=== PATIENT | male | born 1955 | race Caucasian/White ===

== ENCOUNTER 2022-08-16 04:09 | Inpatient (IN) | payer MEDICARE ==
[2022-08-16] MEDS ORDERED: ONDANSETRON 4 MG/2 ML VIAL ONE (04:43)
[2022-08-16] MEDS ORDERED: FUROSEMIDE 40 MG/4 ML VIAL ONE ×3 (04:43→17:23)
[2022-08-16] MEDS ORDERED: ASPIRIN 81 MG CHEWABLE TABLET ONE (04:43)
[2022-08-16 04:59] LABS: Absolute Lymphocytes (CBC) 0.5 K/uL (0.7-4.9); Hematocrit 41.2 % (39.6-49.0); Lymphocytes % 4.6 % (15.3-44.8); MPV 8.7 fL (7.6-11.3); RBC Red Blood Cell Count 4.96 M/uL (4.33-5.43)
[2022-08-16 05:16] LABS: Albumin 3.8 g/dL (3.4-5.0); Bilirubin Direct 0.2 mg/dL (0-0.2); Bilirubin Total 0.4 mg/dL (0.2-1.0); Magnesium 2.1 mg/dL (1.6-2.4); Potassium 4.4 mmol/L (3.5-5.1); Protein, Total 7.5 g/dL (6.4-8.2); Troponin High Sensitivity 54.2 pg/mL (<58.9)
--- NOTE | 2022-08-16 07:02 | EDPHYS ---
Physician Documentation [facility] Name: Darryl Madrigal Age: 66 yrs Sex: Male : 1955 Arrival Date: 08/16/2022 Time: 04:11 Bed 18 Private MD: ED Physician Rickey Martin HPI: 08/16 05:04 This 66 yrs old Male presents to ER via Ambulatory with complaints of Shortness Of rt Breath, Chest Pain. 05:04 The patient has shortness of breath at rest. Onset: The symptoms/episode began/occurred rt 2 hour(s) ago. Duration: The symptoms are continuous. The patient's shortness of breath has no apparent modifying factors. Associated signs and symptoms: Pertinent positives: chest pain, nausea. Severity of symptoms: At their worst the symptoms were moderate. Patient with history of congestive heart failure, coronary artery disease presents to the ED with an acute onset of dyspnea and chest pain that woke him up from sleep. The patient states that he believes that he is retaining fluid. The patient states that the dyspnea is improved and the chest pain has resolved, however, he has persistent nausea. Denies other acute complaints at this time, symptoms are moderate severity, no other aggravating or alleviating factors.. Historical: - Allergies: 04:25 RICHARD INHIBITORS; bb - Immunization history:: Client reports receiving the 2nd dose of the Covid vaccine, Moderna. - Social history:: Smoking status: Patient denies any tobacco usage or history of. - Family history:: not pertinent. ROS: 05:04 Constitutional: Negative for fever, chills, and weight loss, Eyes: Negative for injury, rt pain, redness, and discharge, ENT: Negative for injury, pain, and discharge, Neck: Negative for injury, pain, and swelling, Back: Negative for injury and pain, MS/Extremity: Negative for injury and deformity, Skin: Negative for injury, rash, and discoloration, Neuro: Negative for headache, weakness, numbness, tingling, and seizure, Psych: Negative for depression, anxiety, suicide ideation, homicidal ideation, and hallucinations. 05:04 Cardiovascular: Positive for chest pain, edema. 05:04 Respiratory: Positive for cough, dyspnea on exertion, orthopnea. 05:04 Abdomen/GI: Positive for nausea, Negative for abdominal pain. Exam: 05:04 Constitutional: This is a well developed, well nourished patient who is awake, alert, rt and in no acute distress. Head/Face: Normocephalic, atraumatic. Eyes: Pupils equal round and reactive to light, extra-ocular motions intact. Lids and lashes normal. Conjunctiva and sclera are non-icteric and not injected. Cornea within normal limits. Periorbital areas with no swelling, redness, or edema. ENT: Nares patent. No nasal discharge, no septal abnormalities noted. Tympanic membranes are normal and external auditory canals are clear. Oropharynx with no redness, swelling, or masses, exudates, or evidence of obstruction, uvula midline. Mucous membranes moist. Chest/axilla: Normal chest wall appearance and motion. Nontender with no deformity. No lesions are appreciated. Cardiovascular: Regular rate and rhythm with a normal S1 and S2. No gallops, murmurs, or rubs. Normal PMI, no JVD. No pulse deficits. Skin: Warm, dry with normal turgor. Normal color with no rashes, no lesions, and no evidence of cellulitis. MS/ Extremity: Pulses equal, no cyanosis. Neurovascular intact. Full, normal range of motion. Neuro: Awake and alert, GCS 15, oriented to person, place, time, and situation. Cranial nerves II-XII grossly intact. Motor strength 5/5 in all extremities. Sensory grossly intact. Cerebellar exam normal. Normal gait. Psych: Awake, alert, with orientation to person, place and time. Behavior, mood, and affect are within normal limits. 05:04 Respiratory: Basilar crackles, mild respiratory distress. 05:04 Musculoskeletal/extremity: 3+ pitting bilateral lower extremity edema with chronic skin changes. 05:10 ECG was reviewed by the Attending Physician. rt Vital Signs: 04:23 BP 139 / 64; Pulse 92; Resp 32 S; Temp 98.7(O); Pulse Ox 98% on R/A; Weight 122.47 kg bb (R); Height 5 ft. 9 in. (175.26 cm) (R); Pain 0/10; 04:56 BP 133 / 61; Pulse 84; Resp 26; Pulse Ox 97% on R/A; Pain 0/10; pf1 06:00 BP 126 / 67; Pulse 71; Resp 25; Pulse Ox 95% on R/A; Pain 0/10; pf1 06:15 BP 130 / 51; Pulse 72; Resp 25; Pulse Ox 94% on R/A; Pain 0/10; pf1 04:23 Body Mass Index 39.87 (122.47 kg, 175.26 cm) bb MDM: 04:20 Patient medically screened. rt 07:02 Differential diagnosis: Anemia Chronic Obstructive Pulmonary Disease Myocardial rt Infarction pneumonia, Pneumothorax pulmonary edema. Data reviewed: vital signs, nurses notes. 08/16 04:33 Order name: Basic Metabolic Panel; Complete Time: 05:26 rt 08/16 04:33 Order name: CBC with Diff; Complete Time: 05:26 rt 08/16 04:33 Order name: LFT's; Complete Time: 05:26 rt 08/16 04:33 Order name: Magnesium; Complete Time: 05:26 rt 08/16 04:33 Order name: NT PRO-BNP; Complete Time: 05:26 rt 08/16 04:33 Order name: Troponin HS; Complete Time: 05:26 rt 08/16 07:37 Order name: SARS RAPID jl7 08/16 08:55 Order name: CBC with Automated Diff EDMS 08/16 08:55 Order name: CBC with Automated Diff EDMS 08/16 08:55 Order name: Comprehensive Metabolic Panel EDMS 08/16 08:55 Order name: Comprehensive Metabolic Panel EDMS 08/16 08:55 Order name: Lipid Profile EDMS 08/16 08:55 Order name: Lipid Profile EDMS 08/16 08:55 Order name: Magnesium EDMS 08/16 04:33 Order name: XRAY Chest (1 view) rt 08/16 04:33 Order name: EKG; Complete Time: 04:34 rt 08/16 08:55 Order name: Echo with Doppler EDMS 08/16 08:55 Order name: Echo with Doppler EDMS 08/16 08:55 Order name: Magnesium EDMS 08/16 08:55 Order name: NT PRO-BNP EDMS 08/16 08:55 Order name: NT PRO-BNP EDMS 08/16 08:55 Order name: Phosphorus EDMS 08/16 08:55 Order name: Phosphorus EDMS 08/17 05:43 Order name: Troponin High Sensitivity EDMS 08/17 08:24 Order name: US EDMS 08/17 11:29 Order name: Troponin High Sensitivity EDMS 08/17 12:06 Order name: Manual Differential EDMS 08/16 04:33 Order name: Cardiac monitoring; Complete Time: 04:36 rt 08/16 04:33 Order name: EKG - Nurse/Tech; Complete Time: 04:36 rt 08/16 04:33 Order name: IV Saline Lock; Complete Time: 04:36 rt 08/16 04:33 Order name: Labs collected and sent; Complete Time: 04:47 rt 08/16 04:33 Order name: O2 Per Protocol; Complete Time: 04:36 rt 08/16 04:33 Order name: O2 Sat Monitoring; Complete Time: 04:36 rt 08/16 08:55 Order name: CONS Physician Consult EDMS 08/16 08:55 Order name: Heart Healthy EDMS EC:10 Rate is 92 beats/min. Rhythm is regular, Normal Sinus Rhythm with Right bundle branch rt block. QRS [place] is Normal. DE interval is normal. QRS interval is normal. Clinical impression: NSR w/ Non-specific ST/T Changes. Administered Medications: 04:45 Drug: Lasix (furosemide) 40 mg Route: IVP; Site: left forearm; pf1 05:45 Follow up: Response: Marked relief of symptoms pf1 04:45 Drug: Zofran (Ondansetron) 4 mg Route: IVP; Site: left forearm; pf1 05:44 Follow up: Response: No adverse reaction; Marked relief of symptoms; Nausea is decreasedpf1 04:47 Drug: Aspirin Chewable Tablet 324 mg Route: PO; pf1 04:57 Follow up: Response: No adverse reaction; Pain is decreased; RASS: Alert and Calm (0) pf1 Disposition Summary: 08/16/22 07:01 Hospitalization Ordered Hospitalization Status: Observation rt Provider: Sweta Fletcher rt Condition: Fair rt Problem: an acute exacerbation rt Symptoms: have improved rt Bed/Room Type: Standard rt Location: Telemetry/MedSurg (observation)(08/17/22 11:53) kj1 Room Assignment: 212(08/17/22 11:53) kj1 Diagnosis - Chest pain, unspecified rt - Unspecified systolic (congestive) heart failure rt Discharge Instructions: - Discharge Summary Sheet pf1 Forms: - Medication Reconciliation Form rt - SBAR form pf1 Signatures: Dispatcher [employer] EDOlivia Quinones, RN RN bb Giovanni Mike RN RN jl7 Birgit Morales kj1 Rickey Martin MD MD rt Erika aguilar RN RN pf1 Corrections: (The following items were deleted from the chart) 10:47 07:01 Telemetry/MedSurg (observation) rt jl7 10:47 07:01 rt jl7 08/17 11:53 08/16 10:47 [facility] jl7 kj1 08/17 11:53 08/16 10:47 [place] [id number] kj1
--- NOTE | 2022-08-16 07:02 | ER ---
Nurse's Notes [facility] Name: Darryl Madrigal Age: 66 yrs Sex: Male : 1955 Arrival Date: 08/16/2022 Time: 04:11 Bed 18 Private MD: Diagnosis: Chest pain, unspecified;Unspecified systolic (congestive) heart failure Presentation: 08/16 04:23 Chief complaint: Patient states: he woke up about 2 hours ago with SOB, intermittent bb chest pain, nausea and dizziness. Coronavirus screen: Client presents with at least one sign or symptom that may indicate coronavirus-19. Ebola Screen: No symptoms or risks identified at this time. Initial Sepsis Screen: Does the patient meet any 2 criteria? RR > 20 per min. No. Patient's initial sepsis screen is negative. Does the patient have a suspected source of infection? No. Patient's initial sepsis screen is negative. Risk Assessment: Do you want to hurt yourself or someone else? Patient reports no desire to harm self or others. Onset of symptoms was August 16, 2022. 04:23 Method Of Arrival: Ambulatory bb 04:23 Acuity: [place] 2 bb Historical: - Allergies: 04:25 RICHARD INHIBITORS; bb - Immunization history:: Client reports receiving the 2nd dose of the Covid vaccine, Moderna. - Social history:: Smoking status: Patient denies any tobacco usage or history of. - Family history:: not pertinent. Screenin:45 [facility] ED Fall Risk Assessment (Adult) History of falling in the last 3 months, pf1 including since admission No falls in past 3 months (0 pts) Confusion or Disorientation No (0 pts) Intoxicated or Sedated No (0 pts) Impaired Gait No (0 pts) Mobility Assist Device Used No (0 pt) Altered Elimination No (0 pt) Score/Fall Risk Level 0 - 2 = Low Risk Oriented to surroundings, Maintained a safe environment, Educated pt \T\ family on fall prevention, incl call for assistance when getting out of bed, Assessed \T\ reinforced patient's understanding of fall precautions, Provided non-skid footwear, Hourly rounding (assess needs \T\ fall precautionary measures) done, Used ambulatory aids as needed (educated on \T\ assisted with). Abuse screen: Denies threats or abuse. Nutritional screening: No deficits noted. Tuberculosis screening: No symptoms or risk factors identified. Assessment: 04:25 General: Appears uncomfortable, well groomed, well developed, Behavior is cooperative, pf1 appropriate for age, anxious. 04:25 Pain: Complains of pain in left side chest Pain currently is 0 out of 10 on a pain pf1 scale. at worst was 8 out of 10 on a pain scale. Pain began 2 hours ago. Neuro: No deficits noted. Level of Consciousness is awake, alert, obeys commands, Oriented to person, place, time, situation. Cardiovascular: Chest pain began 2 hours [employer]. Respiratory: Airway is patent Respiratory effort is even, labored, Respiratory pattern is symmetrical, tachypnea Breath sounds are clear in right upper lobe and left upper lobe Breath sounds are diminished in left lower lobe and right lower lobe. Respiratory: Reports shortness of breath at rest on exertion. GI: Reports nausea. : No deficits noted. No signs and/or symptoms were reported regarding the genitourinary system. EENT: No deficits noted. No signs and/or symptoms were reported regarding the EENT system. Derm: No deficits noted. No signs and/or symptoms reported regarding the dermatologic system. Vital Signs: 04:23 BP 139 / 64; Pulse 92; Resp 32 S; Temp 98.7(O); Pulse Ox 98% on R/A; Weight 122.47 kg bb (R); Height 5 ft. 9 in. (175.26 cm) (R); Pain 0/10; 04:56 BP 133 / 61; Pulse 84; Resp 26; Pulse Ox 97% on R/A; Pain 0/10; pf1 06:00 BP 126 / 67; Pulse 71; Resp 25; Pulse Ox 95% on R/A; Pain 0/10; pf1 06:15 BP 130 / 51; Pulse 72; Resp 25; Pulse Ox 94% on R/A; Pain 0/10; pf1 04:23 Body Mass Index 39.87 (122.47 kg, 175.26 cm) bb ED Course: 04:11 Patient arrived in ED. ja2 04:19 Rickey Martin MD is Attending Physician. rt 04:25 Triage completed. 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 EKG completed in triage. Results shown to . 04:30 Inserted saline lock: 20 gauge in left forearm, using aseptic technique. pf1 04:34 Erika aguilar, RN is Primary Nurse. pf1 04:47 Basic Metabolic Panel Sent. pf1 04:47 CBC with Diff Sent. pf1 04:47 LFT's Sent. pf1 04:47 Magnesium Sent. pf1 04:47 NT PRO-BNP Sent. pf1 04:47 Troponin HS Sent. pf1 05:23 XRAY Chest (1 view) In Process Unspecified. EDMS 07:01 Sweta Fletcher MD is Hospitalizing Provider. rt 08/17 07:00 No provider procedures requiring assistance completed. Patient admitted, IV remains in jl7 place. intact, No redness/swelling at site. 07:54 Primary Nurse role handed off by Erika aguilar RN jl7 07:54 Giovanni Mike RN is Primary Nurse. jl7 Administered Medications: 08/16 04:45 Drug: Lasix (furosemide) 40 mg Route: IVP; Site: left forearm; pf1 05:45 Follow up: Response: Marked relief of symptoms pf1 04:45 Drug: Zofran (Ondansetron) 4 mg Route: IVP; Site: left forearm; pf1 05:44 Follow up: Response: No adverse reaction; Marked relief of symptoms; Nausea is decreasedpf1 04:47 Drug: Aspirin Chewable Tablet 324 mg Route: PO; pf1 04:57 Follow up: Response: No adverse reaction; Pain is decreased; RASS: Alert and Calm (0) pf1 Medication: 08/17 07:00 VIS not applicable for this client. jl7 Outcome: 08/16 07:01 Decision to Hospitalize by Provider. rt 08/17 07:00 Admitted to ER Hold. Please see [facility] for further documentation. jl7 Condition: stable Discharge instructions given to patient, Instructed on the need for admit, Demonstrated understanding of instructions. 12:26 Patient left the ED. jl7 Signatures: Dispatcher [employer] EDMS Olivia Car RN RN bb Giovanni Mike RN RN jl7 Diane Hargrove Ryan, MD MD rt Erika aguilar RN RN pf1
[2022-08-16] MEDS ORDERED: ONDANSETRON 4 MG/2 ML VIAL IV PRN (08:50)
[2022-08-16] MEDS ORDERED: ACETAMINOPHEN 500 MG TAB PO PRN (08:50)
[2022-08-16] MEDS: POTASSIUM 25 MEQ EFFERV TAB PO SCH ×2 (09:00→20:49)
[2022-08-16] MEDS: FUROSEMIDE 40 MG/4 ML VIAL IV SCH ×2 (09:00→17:00)
[2022-08-16] MEDS: ENOXAPARIN 40 MG/0.4 ML SQ SCH (09:00)
[2022-08-16] MEDS: ASPIRIN EC 81 MG TAB PO SCH (09:00)
[2022-08-16 10:17] LABS: SARS-CoV-2 Antigen Rapid Res Negative (Negative)
[2022-08-16] MEDS ORDERED: ASPIRIN EC 81 MG TAB PO ONE (10:45)
[2022-08-16] MEDS ORDERED: POTASSIUM 25 MEQ EFFERV TAB ONE ×2 (10:45→20:37)
[2022-08-16] MEDS ORDERED: ENOXAPARIN 40 MG/0.4 ML SQ ONE (10:46)
--- NOTE | 2022-08-16 13:21 | CON ---
Date of Consultation: 08/16/2022 Reason For Consultation: Congestive heart failure and chest pain. History Of Present Illness: A 66-year-old male with history of coronary artery disease, multiple nusrta nts in the past, history of congestive heart failure. Woke up with significant shortness of breath a nd orthopnea and also felt chest heaviness, radiated to left upper extremity has some lower extremity edema. Denies having any diaphoresis, nausea, vomiting, and no other complaints. Past Medical History: Significant for coronary artery disease, congestive heart failure, hypertensio n, diabetes, and chronic kidney disease. Medications: Refer reconciliation sheet for detailed list. Allergies: RICHARD INHIBITORS. Family History: No premature coronary artery disease or cancer. Social History: Does not smoke or drink. Does not use any drugs. Review of Systems: All systems reviewed are negative except mentioned in HPI. Physical Examination: Vital Signs: Reviewed. Head and Neck: Pupils are equal, reactive to light. Intact eye movements. No JVD. No cervical lym phadenopathy. Neck is supple. Thyroid is not enlarged. Lungs: Decreased breathing sounds with faint crackles in bases. No accessory muscle use or muscle r etraction. Heart: Regular rate and rhythm. No extra sounds. Abdomen: Soft, nontender. Bowel sounds positive. No organomegaly. No masses or hernia. No rigidi ty or rebound Mass on image 3 pounds extremities edema 2+ bilaterally. No clubbing, cyanosis. Intac t pulses. Skin: No rash. Neurologic: Alert, awake, oriented x3. No acute focal deficits appreciated. Investigations: NT proBNP was 663. BUN 24, creatinine 1.56, and hemoglobin is 13.7. Assessment/recommendations: 1.Acute on chronic congestive heart failure exacerbation. Ejection fraction is not known. Recommen d Lasix 40 mg IV q.12 hours. Monitor BUN, creatinine, electrolytes, and obtain echocardiogram. 2.Chest pain. First set of cardiac enzymes is negative. Known history of coronary artery disease. Trend 2 more sets of cardiac enzymes and obtain an echocardiogram tomorrow. Further recommendations to follow. 3.Renal failure. This could be acute renal failure due to fluid retention. Re-evaluate after diure sis. SR/MODL Voice ID: [id number] Report ID: [id number]
--- NOTE | 2022-08-16 15:32 | RAD REPORT ---
EXAM DESCRIPTION: XR Chest, 1 View CLINICAL HISTORY: The patient is 66 years old and is Male; DYSPNEA TECHNIQUE: Single view of the chest. COMPARISON: No relevant prior studies available. FINDINGS: Lungs: No pulmonary vascular congestion or consolidation. Pleural space: Unremarkable. No pneumothorax. Heart: Cardiomegaly. Mediastinum: Unremarkable. Bones/joints: Degenerative changes in the AC joints. No acute rib fracture visualized. Upper abdomen: No free air in the visualized upper abdomen. IMPRESSION: No acute cardiopulmonary process identified. Electronically signed by: Maria Isabel Prado MD 08/16/2022 5:51 AM MANAGER BAKERY Due to temporary technical issues with the PACS/Fluency reporting system, reports are being signed by the in house radiologists without review as a courtesy to insure prompt reporting. The interpreting radiologist is fully responsible for the content of the report.
--- NOTE | 2022-08-16 22:53 | P.HP ---
Certification for Inpatient Patient admitted to: Observation With expected LOS: <2 Midnights Patient will require the following post-hospital care: None Practitioner: I am a practitioner with admitting privileges, knowledge of patient current condition, hospital course, and medical plan of care. Services: Services provided to patient in accordance with Admission requirements found in Title 42 Section 412.3 of the Code of Federal Regulations Patient History Date of Service: 08/16/22 Reason for admission: Shortness of breath History of Present Illness: Patient is a 66-year-old gentleman came to the hospital with shortness of breath. Patient has history of coronary artery disease status post stent placement. Patient came into the hospital with difficulty breathing. Patient came into the hospital for further evaluation. In the emergency room patient has slightly elevated BNP. Patient also had some pulmonary edema on chest x- ray. Patient was started on diuretics. Patient will be admitted to the hospital for further workup. We do not have any records here on file. We will try to get his records from his meal attendant. Will get Cardiology consultation for further input. Patient will be admitted for further treatment. Allergies RICHARD Inhibitors Allergy (Verified 08/16/22 09:12) UNK - Past Medical/Surgical History Has patient received pneumonia vaccine in the past: Yes -: CAD -: Cardiac catheterization - Family History Father Family History: Reviewed- Non-Contributory - Social History Smoking Status: Never smoker Alcohol use: No CD- Drugs: No Place of Residence: Home Review of Systems 10-point ROS is otherwise unremarkable Physical Examination - Vital Signs Temperature: 97.9 F Blood Pressure: 108/71 Pulse: 84 Respirations: 21 Pulse Ox (%): 92 - Physical Exam General: Alert, In no apparent distress, Oriented x3 HEENT: Atraumatic, PERRLA, Mucous membr. moist/pink, EOMI, Sclerae nonicteric Neck: Supple, 2+ carotid pulse no bruit, No LAD, Without JVD or thyroid abnormality Respiratory: Diminished, Crackles/rales Cardiovascular: Regular rate/rhythm, Normal S1 S2, Systolic murmur Gastrointestinal: Normal bowel sounds, Soft and benign, Non-distended, No tenderness Musculoskeletal: No clubbing, No swelling, No tenderness Integumentary: No rashes Neurological: Normal gait, Normal speech, Normal strength at 5/5 x4 extr, Normal tone, Sensation intact, Cranial nerves 3-12 intact, Normal affect Lymphatics: No axilla or inguinal lymphadenopathy - Studies Laboratory Data (last 24 hrs) 08/16/22 04:30: WBC 10.10, Hgb 13.7, Hct 41.2, Plt Count 214 08/16/22 04:30: Sodium 134 L, Potassium 4.4, BUN 24 H, Creatinine 1.56 H, Glucose 167 H, Magnesium 2.1, Total Bilirubin 0.4, AST 29, ALT 46, Alkaline Phosphatase 87 Assessment & Plan - Problems (Diagnosis) (1) Acute exacerbation of congestive heart failure Current Visit: Yes Status: Acute (2) H/O heart artery stent Current Visit: Yes Status: Acute (3) FER (acute kidney injury) Current Visit: Yes Status: Acute - Plan 1. Echocardiogram pending 2. Monitor renal function; Renal US pending 3. Continue Beta ángela 4. Cardiology consultation 5. Aggressive diuresis 6. Strict I's and O's 7. Repeat CXR 8. Daily weights 9. Education regarding diet and treatment of congestive heart failure Discharge Plan: Home Plan to discharge in: 24 Hours - Advance Directives Does patient have a Living Will: No Does patient have a Durable POA for Healthcare: No - Code Status/Comfort Care Code Status Assessed: Yes Code Status: Full Code Critical Care: No Time Spent Managing PTS Care (In Minutes): 45
[2022-08-17] MEDS ORDERED: ONDANSETRON 4 MG/2 ML VIAL ONE (02:43)
[2022-08-17 05:32] LABS: Bilirubin Total 0.5 mg/dL (0.2-1.0); Magnesium 2.2 mg/dL (1.6-2.4); Phosphorus 3.5 mg/dL (2.5-4.9); Protein, Total 7.7 g/dL (6.4-8.2)
[2022-08-17] MEDS ORDERED: dexAMETHasone 10 MG/ML VIAL IV ONE (06:46)
--- NOTE | 2022-08-17 06:46 | P.PN ---
Subjective Date of Service: 08/17/22 Patient states he is feeling much better. His breathing is improved and he denies having chest pain. He is having some back discomfort. In his clinical settings with his history of coronary artery disease and the fact that his troponins have increased from 54 to 560, need to continue monitoring more close ly. We will change him to inpatient hospitalization. May need to start anticoagulation if he has any chest pain. Otherwise, we will may be due to stress test in the morning depending on what his repeat troponins do. He may need further intervention such as cardiac catheterization. Review of Systems 10-point ROS is otherwise unremarkable Physical Examination - Vital Signs Temperature: 97.9 F Blood Pressure: 116/56 Pulse: 74 Respirations: 20 Pulse Ox (%): 96 - Physical Exam General: Alert, In no apparent distress HEENT: Atraumatic, PERRLA, EOMI Neck: Supple, JVD not distended Respiratory: Normal air movement, Crackles/rales Cardiovascular: Regular rate/rhythm, Normal S1 S2, Systolic murmur Gastrointestinal: Normal bowel sounds, No tenderness Musculoskeletal: No tenderness Integumentary: No rashes Neurological: Normal speech, Normal tone, Normal affect Lymphatics: No axilla or inguinal lymphadenopathy - Studies Medications List Reviewed: Yes Assessment & Plan - Problems (Diagnosis) (1) NSTEMI (non-ST elevated myocardial infarction) Current Visit: Yes Status: Acute (2) Acute exacerbation of congestive heart failure Current Visit: Yes Status: Acute (3) H/O heart artery stent Current Visit: Yes Status: Acute (4) FER (acute kidney injury) Current Visit: Yes Status: Acute - Plan 1. Echocardiogram pending: Serial troponins and repeat EKG if chest pain recurs 2. Monitor renal function; Renal US pending 3. Continue Beta ángela 4. Cardiology consultation appreciated 5. Aggressive diuresis 6. Strict I's and O's 7. Repeat CXR 8. Daily weights 9. Education regarding diet and treatment of congestive heart failure Discharge Plan: Home Plan to discharge in: Greater than 2 days - Advance Directives Does patient have a Living Will: No Does patient have a Durable POA for Healthcare: No - Code Status/Comfort Care Code Status: Full Code Critical Care: No Time Spent Managing PTS Care (In Minutes): 30
[2022-08-17] MEDS ORDERED: CYCLOBENZAPRINE 10 MG TAB PO ONE (06:47)
--- NOTE | 2022-08-17 08:19 | CON ---
Date of Consultation: 08/17/2022 Reason For Consultation: Chest pain. History Of Present Illness: This is a 66-year-old male, who woke up very short of breath and had ort hopnea, lower extremity edema as well as chest discomfort. He is known to have history of coronary a rtery disease, status post cardiac stent placement. He said that he has congestive heart failure wit h ejection fraction around 20% as per his report and he follows up with Cardiology in [place]. Past Medical History: Coronary artery disease, hypertension, diabetes, congestive heart failure, atr ial fibrillation. Medications: Refer to reconciliation sheet for detailed list. Allergies: RICHARD INHIBITORS. Family History: DICTATION ENDS HERE SR/MODL Voice ID: [id number] Report ID: [id number]
--- NOTE | 2022-08-17 08:24 | RAD REPORT ---
EXAM DESCRIPTION: US - Renal Ultrasound-Complete - 08/17/2022 1:20 am CLINICAL HISTORY: FER Flank pain COMPARISON: No comparisons FINDINGS: Both kidneys are normal in size, shape and echotexture. The right kidney measures 10.9 x 4.9 x 4.6 cm. No hydronephrosis, focal mass or perinephric fluid. The left kidney measures 12.5 x 6.5 x 4.6 cm. No hydronephrosis, focal mass or perinephric fluid. 10 mm benign-appearing cyst left kidney. The urinary bladder is incompletely distended without gross abnormality seen. IMPRESSION: Small benign left renal cysts, otherwise negative study.
[2022-08-17] MEDS ORDERED: CYCLOBENZAPRINE 10 MG TAB ONE (08:25)
[2022-08-17] MEDS ORDERED: dexAMETHasone 4 MG/ML VIAL ONE (08:26)
[2022-08-17] MEDS ORDERED: POTASSIUM 25 MEQ EFFERV TAB ONE (08:26)
[2022-08-17] MEDS ORDERED: ASPIRIN EC 81 MG TAB PO ONE (08:26)
[2022-08-17] MEDS ORDERED: FUROSEMIDE 40 MG/4 ML VIAL ONE (08:26)
--- NOTE | 2022-08-17 08:55 | PN ---
Date of Progress Note: 08/17/2022 Subjective: Seen by bedside. Slightly better. No significant orthopnea. Review of Systems: No chest pain. No orthopnea. Has shortness with exertion, lower extremity edema. No nausea, vomiti ng, diarrhea. All other systems reviewed and they were negative. Physical Examination: Vital Signs: Reviewed. Head and Neck: Pupils are equal, reactive to light. Intact eye movements. No JVD. No cervical lym phadenopathy. Neck is supple. Thyroid is not enlarged. Lungs: Clear to auscultation bilaterally. No rhonchi, wheezing, or crackles. No accessory muscle u se. Heart: Regular rate and rhythm. No extra sounds. Abdomen: Soft, nontender. Bowel sounds positive. No organomegaly. No masses or hernia. No rigidi ty or rebound. Extremities: Edema bilaterally. No clubbing or cyanosis. Intact pulses. Skin: No rash. Neurologic: Alert, awake, oriented x3. No acute focal deficits appreciated. Investigations: BUN 23, creatinine 1.4. Troponin went up from 54 to 564. Assessment And Recommendations: 1.Acute on chronic systolic heart failure exacerbation. Echocardiogram is ordered to evaluate his e jection fraction. Continue Lasix 40 mg IV b.i.d. 2.Acute on chronic renal failure, likely cardiorenal. Creatinine is improving with diuresis. Andrés nue current management. 3.Elevated troponin. This is likely demand; however, trend the troponin further. If this substantially increases, then we will plan for ischemia workup. SR/MODL Voice ID: [id number] Report ID: [id number]
[2022-08-17] MEDS: ASPIRIN EC 81 MG TAB PO SCH (09:00)
[2022-08-17] MEDS: POTASSIUM 25 MEQ EFFERV TAB PO SCH ×2 (09:00→21:20)
[2022-08-17] MEDS ORDERED: HOME MED 1 EA UNK (Semaglutide [Ozempic] 0.25 MG/0.2 ML Pen.Injctr) SQ SCH (09:00)
[2022-08-17] MEDS: ENOXAPARIN 40 MG/0.4 ML SQ SCH (09:00)
[2022-08-17] MEDS: FUROSEMIDE 40 MG/4 ML VIAL IV SCH ×2 (09:00→16:24)
[2022-08-17] MEDS ORDERED: ENOXAPARIN 40 MG/0.4 ML SQ ONE (09:23)
[2022-08-17 09:25] LABS: Absolute Lymphocytes (CBC) 0.9 K/uL (0.7-4.9); Lymphocytes % 10.3 % (15.3-44.8); MCV 83.8 fL (80-100); MPV 8.4 fL (7.6-11.3); RBC Red Blood Cell Count 5.13 M/uL (4.33-5.43)
[2022-08-17 12:05] LABS: Blood Morphology Comment NOT SEEN (NOT SEEN); Platelet Estimate ADEQ
--- NOTE | 2022-08-17 13:43 | EKG ---
Test Date: 2022-08-16 Test Time: 04:19:19 Packaging Line Operator: KT MEASUREMENT RESULTS: Intervals: Rate: 92 [place]: 264 QRSD: 150 QT: 416 QTc: 514 [place]: P: [place]: 264 QRS: -86 T: 44 INTERPRETIVE STATEMENTS: Sinus rhythm with 1st degree AV block Right bundle branch block Left anterior fascicular block Bifascicular block Possible Lateral infarct, age undetermined Abnormal ECG No previous ECG available for comparison Electronically Signed On 08-17-22 13:39:19 CONSULTING GROUP ANALYST by Bill Arellano
[2022-08-17] MEDS: HYDROCODONE/APAP 10/325 TAB PO PRN ×2 (15:16→21:20)
[2022-08-18] MEDS: HYDROCODONE/APAP 10/325 TAB PO PRN ×3 (04:55→20:27)
[2022-08-18] MEDS: FUROSEMIDE 40 MG/4 ML VIAL IV SCH ×2 (07:51→17:12)
[2022-08-18] MEDS: ENOXAPARIN 40 MG/0.4 ML SQ SCH (07:51)
[2022-08-18] MEDS: ASPIRIN EC 81 MG TAB PO SCH (07:52)
[2022-08-18] MEDS: POTASSIUM 25 MEQ EFFERV TAB PO SCH (07:52)
[2022-08-18 10:36] VITALS: BMI 39.4
[2022-08-18] MEDS ORDERED: FLUCONAZOLE 100 MG TAB PO ONE (13:00)
[2022-08-18] MEDS ORDERED: dexAMETHasone 4 MG/ML VIAL IV ONE (13:00)
[2022-08-18] MEDS: KETOCONAZOLE CREAM 15 GM TUBE TOP SCH ×2 (14:18→20:29)
[2022-08-18] MEDS: LACTOBACILLUS/ACIDOPHILUS TAB PO SCH ×2 (14:18→20:28)
[2022-08-18] MEDS: carvediloL 12.5 MG TAB PO SCH (17:11)
--- NOTE | 2022-08-18 20:16 | PN ---
Date of Progress Note: 08/18/2022 Subjective: Seen by bedside. He is diuresing well and improving slowly. Review of Systems: No chest pain. Has shortness of breath on exertion and lower extremity edema. No nausea, vomiting, diarrhea, or diaphoresis. No dysuria, polyuria, or urinary urgency. All other systems reviewed are negative. Physical Examination: Vital signs: Reviewed. Temperature is 97.2, pulse 59, breathing at 16, blood pressure 121/58, satur ating 95% on room air. General: Pleasant middle-aged male, in no apparent distress. Head and Neck: Pupils are equal, reactive to light. Intact eye movements. No cervical lymphadenopa thy. Neck is supple. Thyroid is not enlarged. Lungs: Decreased breathing sounds with thin crackles on the bases. No accessory muscle use or muscl e retraction. Heart: Regular rate and rhythm. No extra sounds. Abdomen: Soft, nontender. Bowel sounds positive. No organomegaly. No masses or hernia. No rigidi ty or rebound. Extremities: 2+ pitting edema. No clubbing, cyanosis. Intact pulses. Skin: No rash. Neurologic: Alert, awake, oriented x3. No acute focal deficits appreciated. Investigations: BUN is 23, creatinine 1.42, improved from yesterday. Troponin is 360, down from 564 . Assessment And Recommendations: 1.Acute on chronic diastolic heart failure exacerbation. Patient has normal ejection fraction by ec ho. We will continue IV Lasix. Monitor BUN, creatinine, electrolytes. The patient needs likely 2 m ore days of diuresis before he gets to the dry weight. 2.Elevated troponin. This is demand ischemia. He does not have any chest pain and the echo showed normal EF with no wall motion abnormalities. We will continue to monitor. Patient will have a stress test planned as an outpatien t. /MODL Voice ID: [id number] Report ID: [id number]
[2022-08-18] MEDS: ATORVASTATIN 40 MG TAB PO SCH (20:28)
[2022-08-18] MEDS: SPIRONOLACTONE 100 MG TAB PO SCH (20:28)
[2022-08-19] MEDS: LEVOTHYROXINE SOD 0.05 MG TABLET PO SCH (05:29)
--- NOTE | 2022-08-19 07:07 | ECHO ---
HEIGHT: 5 ft 9 in WEIGHT: 267 lb 3.2 oz DATE OF STUDY: 08/18/[address]: Sweta Fletcher MD 2-DIMENSIONAL: YES M.MODE: YES DOPPLER: YES COLOR FLOW: YES TDS: PORTABLE: YES DEFINITY: BUBBLE STUDY: DIAGNOSIS: CONGESTIVE HEART FAILURE CARDIAC HISTORY: CATHERIZATION: YES SURGERY: PROSTHETIC VALVE: PACEMAKER: MEASUREMENTS (cm) DIASTOLIC (NORMALS) SYSTOLIC (NORMALS) IVSd 1.1 (0.6-1.2) LA Diam 4.3 (1.9-4.0) LVEF 59% LVIDd 6.5 (3.5-5.7) LVIDs 4.4 (2.0-3.5) %FS 32% LVPWd 1.1 (0.6-1.2) Ao Diam 2.6 (2.0-3.7) 2 DIMENSIONAL ASSESSMENT: RIGHT ATRIUM: NORMAL LEFT ATRIUM: ENLARGED RIGHT VENTRICLE: NORMAL LEFT VENTRICLE: NORMAL TRICUSPID VALVE: MILD TRICUSPID REGURGITATION MITRAL VALVE: MILD TO MODERATE MITRAL REGURGITATION PULMONIC VALVE: NORMAL AORTIC VALVE: MILD AORTIC INSUFFICIENCY PERICARDIAL EFFUSION: NONE AORTIC ROOT: NORMAL LEFT VENTRICULAR WALL MOTION: NORMAL DOPPLER/COLOR FLOW: SEE BELOW COMMENTS: 1. NORMAL LEFT VENTRICULAR EJECTION FRACTION 55-60% WITH NORMAL WALL MOTION 2. MILD TO MODERATE MITRAL REGURGITATION 3. MILD TRICUSPID REGURGITATION, MILD AORTIC INSUFFICIENCY 4. MODERATE DIASTIOLIC DYSFUNCTION 5. LEFT ATRIAL ENLARGEMENT TECHNOLOGIST: HELEN FONG
[2022-08-19] MEDS: carvediloL 12.5 MG TAB PO SCH ×2 (08:10→17:10)
[2022-08-19] MEDS: KETOCONAZOLE CREAM 15 GM TUBE TOP SCH ×2 (08:10→20:42)
[2022-08-19] MEDS: LACTOBACILLUS/ACIDOPHILUS TAB PO SCH ×3 (08:10→20:39)
[2022-08-19] MEDS: SPIRONOLACTONE 100 MG TAB PO SCH ×2 (08:10→20:39)
[2022-08-19] MEDS: ASPIRIN EC 81 MG TAB PO SCH (08:10)
[2022-08-19] MEDS: FUROSEMIDE 40 MG/4 ML VIAL IV SCH ×2 (08:11→17:10)
[2022-08-19] MEDS: AMLODIPINE 10 MG TAB PO SCH (08:11)
[2022-08-19] MEDS: HYDROCODONE/APAP 10/325 TAB PO PRN (09:58)
--- NOTE | 2022-08-19 14:08 | PN ---
Date of Progress Note: 08/19/2022 Subjective: Seen by bedside. Continues to have shortness of breath on minimal exertion. Review of Systems: No chest pain, but has shortness of breath on exertion. Some mild lower extremity edema. No nausea, vomiting, diarrhea. No abdominal pain. No dysuria, polyuria, or urinary urgency. All other system s reviewed and they were negative. Physical Examination: Vital Signs: Reviewed. Head and Neck: Pupils are equal, reactive to light. Intact eye movements. No JVD. No cervical lym phadenopathy. Neck is supple. Thyroid is not enlarged. Lungs: Clear to auscultation bilaterally. No rhonchi, wheezing, or crackles. No accessory muscle u se. Heart: Regular rate and rhythm. No extra sounds. Abdomen: Soft, nontender. Bowel sounds positive. No organomegaly. No masses or hernia. No rigidi ty or rebound. Extremities: No edema, clubbing, or cyanosis. Intact pulses. Skin: No rash. Neurologic: Alert, awake, oriented x3. No acute focal deficits appreciated. Lymph Nodes: No cervical or axillary lymphadenopathy. Investigations: Labs were reviewed. Assessment And Recommendations: 1.Shortness of breath on exertion. Has diastolic heart failure. Ejection fraction was normal by ec ho. Continue diuresis 1 more day, but we will check BUN, creatinine, and electrolytes today. Contin ue Lasix and reassess the Lasix dosing accordingly. 2.Elevated troponin with shortness of breath on exertion, even though he is approaching to be euvole coty. He still has significant symptoms. We will change the plan to do a nuclear stress test on him tomorrow and we will plan accor abena. SR/MODL Voice ID: [id number] Report ID: [id number]
[2022-08-19 17:38] LABS: Potassium 4.6 mmol/L (3.5-5.1)
[2022-08-19] MEDS: ATORVASTATIN 40 MG TAB PO SCH (20:42)
[2022-08-20] MEDS: LEVOTHYROXINE SOD 0.05 MG TABLET PO SCH (06:11)
[2022-08-20 06:14] LABS: Absolute Lymphocytes (CBC) 1.4 K/uL (0.7-4.9); Hematocrit 41.5 % (39.6-49.0); Lymphocytes % 18.1 % (15.3-44.8); MCV 83.2 fL (80-100); MPV 8.6 fL (7.6-11.3); RBC Red Blood Cell Count 4.98 M/uL (4.33-5.43)
[2022-08-20 06:37] LABS: Albumin 3.4 g/dL (3.4-5.0); Bilirubin Total 0.3 mg/dL (0.2-1.0); Magnesium 2.2 mg/dL (1.6-2.4); Potassium 4.3 mmol/L (3.5-5.1); Protein, Total 7.4 g/dL (6.4-8.2)
[2022-08-20 06:50] LABS: Blood Morphology Comment NOT SEEN (NOT SEEN); Platelet Estimate ADEQ; White Blood Cell Scan OK (OK)
--- NOTE | 2022-08-20 07:40 | RAD REPORT ---
EXAM DESCRIPTION: RAD - Chest Single View - 08/20/2022 5:17 am CLINICAL HISTORY: pneumonia COMPARISON: Portable 08/16/2022 TECHNIQUE: AP portable chest image was obtained 08/20/2022 5:17 am . FINDINGS: No focal mass or consolidation identifiable. Mild diffuse prominence of the interstitial p attern is similar to the prior study when adjusting for the improved inspiration on the current exami nation. No progressive lung parenchymal process seen. Cardiac silhouette remains enlarged. Upper lobe vasculature within normal limits. Trachea is midline. No measurable pleural effusion and no pneumothorax. No acute bony abnormality seen. No acute aortic findings suspected. IMPRESSION: Cardiomegaly without other findings of failure or volume overload. No new or progressive lung parenchymal process.
[2022-08-20] MEDS ORDERED: REGADENOSON 0.4 MG/5 ML SYR IV ONE ×2 (09:00→15:36)
[2022-08-20] MEDS: AMLODIPINE 10 MG TAB PO SCH (09:27)
[2022-08-20] MEDS: carvediloL 12.5 MG TAB PO SCH ×2 (09:27→17:00)
[2022-08-20] MEDS: KETOCONAZOLE CREAM 15 GM TUBE TOP SCH ×2 (09:27→22:04)
[2022-08-20] MEDS: SPIRONOLACTONE 100 MG TAB PO SCH ×2 (09:27→22:03)
[2022-08-20] MEDS: ASPIRIN EC 81 MG TAB PO SCH (09:27)
[2022-08-20] MEDS: LACTOBACILLUS/ACIDOPHILUS TAB PO SCH ×3 (09:28→22:03)
[2022-08-20] MEDS: FUROSEMIDE 40 MG/4 ML VIAL IV SCH ×2 (09:28→17:00)
--- NOTE | 2022-08-20 09:55 | RAD REPORT ---
EXAM DESCRIPTION: NM - Rest Stress Cardiac Imaging - 08/20/2022 9:18 am CLINICAL HISTORY: Chest pain COMPARISON: None. TECHNIQUE: The patient was administered 10.3 mCi of Tc 99m Sestamibi prior to resting SPECT imaging of the heart. The patient was then administered 28.7 mCi of Tc 99m Sestamibi following exercise or ph armacologic stress. Multiplanar SPECT images were reviewed. FINDINGS: The end diastolic volume is 170 ml, the end systolic volume is 107 ml, and the ejection fr action is 37 %. A large fixed perfusion abnormality is seen in the inferolateral base and midportion of the left vent ricle. Small focus of ischemia is suspected along the inferolateral wall near the apex along the malcolm in of the larger chronic infarct. Similarly, a small focus of suspected ischemia is present anterosep [place] apex. IMPRESSION: Small area of isiah-infarct ischemia seen in the inferolateral apex adjacent to a large f ixed defect inferolateral wall. Small focus of ischemia suspected in the anteroseptal wall near the apex. End-diastolic volume calculation is enlarged at 170 mL. Ejection fraction is poor at 37%.
--- NOTE | 2022-08-20 10:47 | P.PN ---
Date of Service: 08/18/22 Subjective Pt is still having dyspnea and symptoms are just slightly improving Review of Systems 10-point ROS is otherwise unremarkable Physical Examination - Vital Signs reviewed - Physical Exam General: Alert, In no apparent distress Respiratory: Normal air movement, Crackles/rales Cardiovascular: Regular rate/rhythm, Normal S1 S2, Systolic murmur Gastrointestinal: Normal bowel sounds, No tenderness Musculoskeletal: No tenderness Neurological: Normal speech, Normal tone, Normal affect Assessment & Plan - Problems (Diagnosis) (1) NSTEMI (non-ST elevated myocardial infarction) Current Visit: Yes Status: Acute (2) Acute exacerbation of congestive heart failure Current Visit: Yes Status: Acute (3) H/O heart artery stent Current Visit: Yes Status: Acute (4) FER (acute kidney injury) Current Visit: Yes Status: Acute - Plan Continue with POC as mentioned below: 1. Echocardiogram reviewed: 2. Monitor renal function-stable; Renal US reviewed 3. Continue Beta ángela 4. Cardiology consultation appreciated 5. Aggressive diuresis; pt with diastolic heart failure; continue with diuresing 6. Strict I's and O's 7. Repeat CXR 8. Daily weights 9. Education regarding diet and treatment of congestive heart failure
--- NOTE | 2022-08-20 10:48 | P.PN ---
Date of Service: 08/19/22 Subjective Pt with dyspnea on exertion; stress test in the AM Review of Systems 10-point ROS is otherwise unremarkable Physical Examination - Vital Signs reviewed - Physical Exam General: Alert, In no apparent distress Respiratory: Normal air movement, Crackles/rales Cardiovascular: Regular rate/rhythm, Normal S1 S2, Systolic murmur Gastrointestinal: Normal bowel sounds, No tenderness Musculoskeletal: No tenderness Neurological: Normal speech, Normal tone, Normal affect Assessment & Plan - Problems (Diagnosis) (1) NSTEMI (non-ST elevated myocardial infarction) Current Visit: Yes Status: Acute (2) Acute exacerbation of congestive heart failure Current Visit: Yes Status: Acute (3) H/O heart artery stent Current Visit: Yes Status: Acute (4) FER (acute kidney injury) Current Visit: Yes Status: Acute - Plan Continue with POC as mentioned below: 1. Echocardiogram reviewed: 2. Monitor renal function-stable; Renal US reviewed 3. Continue Beta ángela 4. Cardiology consultation appreciated 5. Aggressive diuresis; pt with diastolic heart failure; continue with diuresing 6. Strict I's and O's 7. Repeat CXR 8. Daily weights 9. Education regarding diet and treatment of congestive heart failure
[2022-08-20] MEDS ORDERED: NA CHLORIDE 0.9% 500 ML ONE (13:23)
--- NOTE | 2022-08-20 13:55 | TREADPHA ---
DX: ELEVATED TROPONIN Date of Study: 08/20/22 Ht: 5' 9 " Wt: 267 lb 3.2 oz Consulting Physician: ESPERANZA MEDICATIONS: TYENOL, NORCO, NORVASC, ASPIRIN, LIPITOR, COREG, LASIX, LACTINEX, SYNTHROID, ZOFRAN, ALDACTONE. HISTORY: 66 YEAR OLD MALE WITH COMPLAINTS OF CHEST PAIN AND SHORTNESS OF BREATH. UNABLE TO COMPLETE MYOVIEW STRESS TEST. HISTORY OF CARDIAC STENTS, HEART MURMUR, CONGESTIVE HEART FAILURE, HYPERTENSION, DIABETES MELLITUS II, HLD. PHYSICIAL EXAMINATION: RESTING B.P.: 157/82 RESTING H.R.: 66 RESTING EKG: NORMAL SINUS RHYTHM, RIGHT BUNBLE BRANCH BLOCK. PROTOCOL: LEXISCAN EXERCISE TIME: 3:30 B.P. AT PEAK STRESS: 157/82 IMPRESSION: LEXISCAN INJECTED, CARDIOLITE INJECTED PER PROTOCOL, SEE NUCLEAR MEDICINE REPORT. PREMATURE VENTRICULAR COMPLEXES NOTED THROUGHOUT TEST. NO PREMATURE ATRIAL COMPLEXES, SUPRA VENTRICULAR TACHYCARDIA, DENIES CHEST PAIN OR SHORTNESS OF BREATH. NO EKG CHANGES WITH LEXISCAN.
[2022-08-20] MEDS ORDERED: HEPA 1000U/500MLS 2,000 UNIT/1,000 ML BAG IV ONE (14:17)
[2022-08-20] MEDS ORDERED: HEPARIN 10,000 UNIT/10 ML VIAL IV ONE (14:18)
[2022-08-20] MEDS ORDERED: HEPARIN 5000 UNIT/ML 1 ML VIAL ONE (14:18)
[2022-08-20] MEDS ORDERED: FENTANYL CITR 100 MCG/2 ML ONE (14:18)
[2022-08-20] MEDS ORDERED: MIDAZOLAM HCL 2 MG/2 ML INJ ONE (14:18)
[2022-08-20] MEDS ORDERED: VERAPAMIL HCL 10 MG/4 ML VIAL IV ONE (14:18)
[2022-08-20] MEDS ORDERED: ATROPINE SULF 1 MG/10 ML SYR IV ONE (14:19)
--- NOTE | 2022-08-20 14:52 | P.PN ---
Date of Service: 08/20/22 Subjective Patient stress test came back positive for reversible ischemia. Stress test findings show a small area of isiah-infarct ischemia seen in the inferolateral apex adjacent to a large fixed defect inferolateral wall.Small focus of ischemia suspected in the anteroseptal wall near the apex. End-diastolic volume calculation is enlarged at 170 mL. Ejection fraction is poor at 37%. Continue with aggressive diuretics at this time. Continue with antiplatelet therapy. Cardiology has scheduled a cardiac catheterization for later today. Review of Systems 10-point ROS is otherwise unremarkable Physical Examination - Vital Signs reviewed - Physical Exam General: Alert, In no apparent distress Respiratory: Normal air movement, Crackles/rales Cardiovascular: Regular rate/rhythm, Normal S1 S2, Systolic murmur Gastrointestinal: Normal bowel sounds, No tenderness Musculoskeletal: No tenderness Neurological: Normal speech, Normal tone, Normal affect Assessment & Plan - Problems (Diagnosis) (1) NSTEMI (non-ST elevated myocardial infarction) Current Visit: Yes Status: Acute (2) Acute exacerbation of congestive heart failure Current Visit: Yes Status: Acute (3) H/O heart artery stent Current Visit: Yes Status: Acute (4) FER (acute kidney injury) Current Visit: Yes Status: Acute - Plan Continue with POC as mentioned below: 1. Echocardiogram reviewed: 2. Monitor renal function-stable; Renal US reviewed 3. Continue Beta ángela 4. Cardiology consultation appreciated 5. Aggressive diuresis; pt with diastolic heart failure; continue with diuresing 6. Daily weights 7. C later today per Cardiology
[2022-08-20] MEDS ORDERED: ONDANSETRON 4 MG/2 ML VIAL ONE (15:39)
--- NOTE | 2022-08-20 15:54 | PN ---
Date of Progress Note: 08/20/2022 Subjective: Seen at bedside. Continues to have significant shortness of breath on minimal exertion. Review of Systems: Shortness of breath on minimal exertion. No orthopnea. Has mild lower extremity edema. No nausea, vomiting, diarrhea. No abdominal pain. No dysuria, polyuria, or urinary urgency. All other systems reviewed are negative. Physical Examination: Vital Signs: Temperature 97.0, pulse 55, breathing at 14, blood pressure 120/66, saturating 97% on r oom air. General: Pleasant middle-aged male, in no apparent distress. Head and Neck: Pupils are equal, reactive to light. Intact eye movements. No JVD. No cervical lym phadenopathy. Neck: Supple. Thyroid is not enlarged. Lungs: Clear to auscultation bilaterally. No rhonchi, wheezing, or crackles. No accessory muscle u se. Heart: Regular rate and rhythm. No extra sounds. Abdomen: Soft, nontender. Bowel sounds positive. No organomegaly. No masses or hernia. No rigidi ty or rebound. Extremities: No clubbing, cyanosis. Intact pulses. Skin: No rash. Neurologic: Alert, awake, oriented x3. No acute focal deficits appreciated. Investigations: BUN 35, creatinine 1.26 and hemoglobin is 14. Assessment/recommendations: 1.Acute on chronic congestive heart failure exacerbation, diastolic heart failure exacerbation. He appears to be getting euvolemic. At this point, patient can be switched to oral Lasix 40 mg by mouth twice a day and continue Aldactone. 2.Elevated troponin with significant shortness of breath of exertion despite the fact that he is not fluid overloaded. Clinically, there is a suspicion of significant coronary artery disease. Stress test was obtained and was abnormal for anterior ischemia. Plan for coronary angiogram today. 3.Acute renal failure. This has resolved after aggressive diuresis. 4.Dyslipidemia. Continue statin with Lipitor 40 mg at bedtime. SR/MODL Voice ID: [id number] Report ID: [id number]
[2022-08-20] MEDS: ATORVASTATIN 40 MG TAB PO SCH (22:04)
[2022-08-21 01:46] VITALS: O2SAT 95
--- NOTE | 2022-08-21 03:21 | OP ---
Date of Procedure: 08/20/2022 Surgeon: LEO MATA Procedures Performed: 1.Selective coronary angiogram. 2.Left heart catheterization. 3.FFR mid RCA which was borderline at 0.8. Indication: Elevated troponin and acute heart failure exacerbation. Access: Right radial artery 6-Martiniquais, closed with TR band. Complications: None. Bleeding: Less than 20 mL. Anesthesia: Total sedation time was 50 minutes, used fentanyl and Versed. Description Of Procedure: After risks, benefits, and alternatives were explained, the patient agreed to the procedure and signed informed consent. Patient was brought into the cardiac catheterization laboratory, prepped and draped in sterile fashion and then accessed the right radial artery using ped iatric micropuncture kit, placed 6-Martiniquais slender sheath and took 5-Martiniquais [place] 4 catheter and aorti c root, engaged the RCA and then I had to use an EBU 3.5 guide to engage the left main because it was very difficult anatomy and took standard views and then catheter was pushed over the wire into the L V, measured the LVEDP, and pullback not recorded in gradient and then gave systemic heparin to assure ACT level above 250 throughout the procedure and then I took a 6-Martiniquais JR4 guide into the aortic ro ot, engaged the RCA and took an FFR wire into the aortic root. Pressures were equalized and then eng aged the RCA and a pressure wire was advanced all the way to the distal RCA. FFR was measured using Lexiscan that was 0.8, and then the wire was removed. Then, the post wire removal angiogram was sati sfactory. Pulling the wire showed no drift. Then, the guide was removed. The sheath was removed an d placed TR band with good hemostasis. Findings: 1.Left main is large and has a stent in the mid section that is patent and the stent extending all t he way to the mid to distal LAD and is widely patent. Diagonal branches are patent and the LAD is la rge and wraps around the apex. 2.Left circumflex. It is small, about 2 mm vessel, where the LAD and left main is about 4 mm. This vessel was jailed doing the stent that was done long time ago on him and has a 90% ostial stenosis a nd it is not amenable to intervention due to the significant discrepancy in size between the left cir c and the LAD and left main. Test DOLLY-3 flow, so this will be left to medical management. 3.RCA: Proximal RCA stent is patent and then there is diffuse mid to distal RCA stenosis 50% to 60% with FFR being borderline at 0.80 and RCA gives some collaterals to the left circumflex and LAD terr itory. 4.LVEDP normal at 12 mmHg. Conclusion: 1.Patent left main to LAD stent, otherwise no significant disease in the LAD. 2.Ostial left circumflex 90% stenosis. This is jailed apparently at the initial procedure where the left main was stented, but has DOLLY-3 flow and not amenable to intervention due to discrepancy in th e size between left circumflex and the left main and the LAD and the vessel is small. 3.Proximal RCA stent is patent and there is diffuse mid to distal RCA stenosis with borderline FFR. 4.Normal LVEDP. Recommendations: Aggressive medical management and cardiac lifestyle modification, and if the patien t starts having symptoms of chest pain or change in ejection fraction, then an atherectomy followed b y PCI of the RCA can be done. From a cardiology standpoint, patient can be released and follow up as an outpatient with his primary bushler. /JESSICA Voice ID: [id number] Report ID: [id number]
--- NOTE | 2022-08-21 05:49 | P.DS ---
Discharge Date: 08/20/22 Disposition: ROUTINE DISCHARGE Reason for Admission: Shortness of breath - Problems (1) NSTEMI (non-ST elevated myocardial infarction) Current Visit: Yes Status: Acute (2) Acute exacerbation of congestive heart failure Current Visit: Yes Status: Acute (3) H/O heart artery stent Current Visit: Yes Status: Acute (4) FER (acute kidney injury) Current Visit: Yes Status: Acute Brief History of Present Illness: Patient is a 66-year-old gentleman came to the hospital with shortness of breath. Patient has history of coronary artery disease status post stent placement. Patient came into the hospital with difficulty breathing. Patient came into the hospital for further evaluation. In the emergency room patient has slightly elevated BNP. Patient also had some pulmonary edema on chest x- ray. Patient was started on diuretics. Patient will be admitted to the hospital for further workup. We do not have any records here on file. 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 Will get Cardiology consultation for further input. Patient will be admitted for further treatment. Hospital Course: Patient was diuresed very aggressively. However he was still having chest pain. Spoke with cardiology and we did a stress test which revolt revealed this anemia. Patient had a cardiac catheterization which showed multivessel disease but not amenable to a stent. Patient will need follow-up with cardiology as an outpatient and he may be arranged for outpatient follow-up for possible surgical intervention. Patient is feeling well and anticipate discharge in the morning. Vital Signs/Physical Exam: Temp Pulse Resp BP Pulse Ox 97.4 F 62 19 114/54 L 95 08/21/22 00:00 08/21/22 00:00 08/21/22 00:00 08/21/22 00:00 08/21/22 00:00 General: Alert, In no apparent distress, Oriented x3 Laboratory Data at Discharge: WBC 7.90 K/uL (4.3-10.9) 08/20/22 05:39 Hgb 14.0 g/dL (13.6-17.9) 08/20/22 05:39 Hct 41.5 % (39.6-49.0) 08/20/22 05:39 Plt Count 203 K/uL (152-406) 08/20/22 05:39 Sodium 135 mmol/L (136-145) L 08/20/22 05:39 Potassium 4.3 mmol/L (3.5-5.1) 08/20/22 05:39 BUN 35 mg/dL (7-18) H 08/20/22 05:39 Creatinine 1.26 mg/dL (0.70-1.30) 08/20/22 05:39 Glucose 160 mg/dL (74-106) H 08/20/22 05:39 Phosphorus 3.5 mg/dL (2.5-4.9) 08/17/22 04:45 Magnesium 2.2 mg/dL (1.6-2.4) 08/20/22 05:39 Total Bilirubin 0.3 mg/dL (0.2-1.0) 08/20/22 05:39 AST 18 U/L (15-37) 08/20/22 05:39 ALT 41 U/L (16-61) 08/20/22 05:39 Alkaline Phosphatase 71 U/L (45-117) 08/20/22 05:39 Triglycerides 150 mg/dL (<150) 08/17/22 04:45 Cholesterol 136 mg/dL (<200) 08/17/22 04:45 HDL Cholesterol 37 mg/dL (40-60) L 08/17/22 04:45 Cholesterol/HDL Ratio 3.68 08/17/22 04:45 Home Medications: Amlodipine [Norvasc*] 10 mg PO DAILY 08/17/22 Apixaban [Eliquis] 5 mg PO BID 08/17/22 Aspirin [Adult Low Dose Aspirin EC] 81 mg PO DAILY 08/17/22 Atorvastatin Calcium [Lipitor] 40 mg PO BEDTIME 08/17/22 Carvedilol [Coreg] 12.5 mg PO BID 08/17/22 Furosemide [Lasix] 40 mg PO BID 08/17/22 Levothyroxine Sodium [Levothyroxine] 50 mcg PO DAILY 08/17/22 Semaglutide [Ozempic] 0.25 mg SQ EVERY 7TH DAY 08/17/22 Spironolactone 50 mg PO BID 08/17/22 Hydrocodone 10/APAP 325 [[place] 10/325*] 1 tab PO Q6H PRN #30 tab 08/21/22 Ketoconazole [Nizoral Cream*] 1 appl TOP BID #1 tube 08/21/22 New Medications: Ketoconazole [Nizoral Cream*] 1 appl TOP BID #1 tube Hydrocodone 10/APAP 325 [[place] 10/325*] 1 tab PO Q6H PRN #30 tab PRN Reason: Pain Scale 5-7 (Moderate) Physician Discharge Instructions: OK TO DC IV AND DC HOME FOLLOW-UP WITH PRIMARY CARE PROVIDER IN 1-2 WEEKS FOLLOW-UP WITH CARDIOLOGY IN 1-2 WEEKS RETURN TO THE ER IF Symptoms worsen CALL DR. GUZMAN AT [phone] IF ANY QUESTIONS REGARDING HOSPITAL STAY. PLEASE CALL THE FLOOR AT [phone] IF ANY MEDICATION OR NURSING QUESTIONS. Diet: AHA Activity: Fall precautions Followup: OOT,OOT [Primary Care Provider] - Time spent managing pt's care (in minutes): 35
[2022-08-21] MEDS: LEVOTHYROXINE SOD 0.05 MG TABLET PO SCH (06:08)
[2022-08-21] MEDS: HYDROCODONE/APAP 10/325 TAB PO PRN (06:41)
[2022-08-21] MEDS: AMLODIPINE 10 MG TAB PO SCH (08:26)
[2022-08-21] MEDS: LACTOBACILLUS/ACIDOPHILUS TAB PO SCH (08:26)
[2022-08-21] MEDS: ASPIRIN EC 81 MG TAB PO SCH (08:27)
[2022-08-21] MEDS: FUROSEMIDE 40 MG/4 ML VIAL IV SCH (08:27)
[2022-08-21] MEDS: carvediloL 12.5 MG TAB PO SCH (08:27)
[2022-08-21] MEDS: SPIRONOLACTONE 100 MG TAB PO SCH (08:28)
[2022-08-21 08:30] VITALS: BP 152/71
[2022-08-21 09:13] VITALS: TEMP 97.4
--- NOTE | 2022-08-21 09:20 | P.DS ---
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 Larson discussed with Dr. Arellano plan for discharge discharge instructions as per Dr. Fletcher Vital Signs/Physical Exam: Temp Pulse Resp BP Pulse Ox 97.4 F 64 16 152/71 H 99 08/21/22 08:00 08/21/22 08:28 08/21/22 08:00 08/21/22 08:28 08/21/22 08:00 Laboratory Data at Discharge: WBC 7.90 K/uL (4.3-10.9) 08/20/22 05:39 Hgb 14.0 g/dL (13.6-17.9) 08/20/22 05:39 Hct 41.5 % (39.6-49.0) 08/20/22 05:39 Plt Count 203 K/uL (152-406) 08/20/22 05:39 Sodium 135 mmol/L (136-145) L 08/20/22 05:39 Potassium 4.3 mmol/L (3.5-5.1) 08/20/22 05:39 BUN 35 mg/dL (7-18) H 08/20/22 05:39 Creatinine 1.26 mg/dL (0.70-1.30) 08/20/22 05:39 Glucose 160 mg/dL (74-106) H 08/20/22 05:39 Phosphorus 3.5 mg/dL (2.5-4.9) 08/17/22 04:45 Magnesium 2.2 mg/dL (1.6-2.4) 08/20/22 05:39 Total Bilirubin 0.3 mg/dL (0.2-1.0) 08/20/22 05:39 AST 18 U/L (15-37) 08/20/22 05:39 ALT 41 U/L (16-61) 08/20/22 05:39 Alkaline Phosphatase 71 U/L (45-117) 08/20/22 05:39 Triglycerides 150 mg/dL (<150) 08/17/22 04:45 Cholesterol 136 mg/dL (<200) 08/17/22 04:45 HDL Cholesterol 37 mg/dL (40-60) L 08/17/22 04:45 Cholesterol/HDL Ratio 3.68 08/17/22 04:45 Home Medications: Amlodipine [Norvasc*] 10 mg PO DAILY 08/17/22 Apixaban [Eliquis] 5 mg PO BID 08/17/22 Aspirin [Adult Low Dose Aspirin EC] 81 mg PO DAILY 08/17/22 Atorvastatin Calcium [Lipitor] 40 mg PO BEDTIME 08/17/22 Carvedilol [Coreg] 12.5 mg PO BID 08/17/22 Furosemide [Lasix] 40 mg PO BID 08/17/22 Levothyroxine Sodium [Levothyroxine] 50 mcg PO DAILY 08/17/22 Semaglutide [Ozempic] 0.25 mg SQ EVERY 7TH DAY 08/17/22 Spironolactone 50 mg PO BID 08/17/22 Acidophilus/Bulgaricus [Lactinex Tablet Chewable] 1 each PO TID #90 tab.chew 08/21/22 Fluconazole [Diflucan] 200 mg PO DAILY #7 tab 08/21/22 Hydrocodone 10/APAP 325 [[place] 10/325*] 1 tab PO Q6H PRN #30 tab 08/21/22 Ketoconazole [Nizoral Cream*] 1 appl TOP BID #1 tube 08/21/22 New Medications: Fluconazole [Diflucan] 200 mg PO DAILY #7 tab Acidophilus/Bulgaricus [Lactinex Tablet Chewable] 1 each PO TID #90 tab.chew Ketoconazole [Nizoral Cream*] 1 appl TOP BID #1 tube Hydrocodone 10/APAP 325 [[place] 10/325*] 1 tab PO Q6H PRN #30 tab PRN Reason: Pain Scale 5-7 (Moderate) Physician Discharge Instructions: OK TO DC IV AND DC HOME FOLLOW-UP WITH PRIMARY CARE PROVIDER IN 1-2 WEEKS FOLLOW-UP WITH CARDIOLOGY IN 1-2 WEEKS RETURN TO THE ER IF Symptoms worsen CALL DR. FLETCHER AT [phone] IF ANY QUESTIONS REGARDING HOSPITAL STAY. PLEASE CALL THE FLOOR AT [phone] IF ANY MEDICATION OR NURSING QUESTIONS. Diet: AHA Activity: Fall precautions Followup: YOU LARSON [UNKNOWN] - OOTEMILY [Primary Care Provider] -
== END 2022-08-21 11:25 | disposition home or self-care (01) | DRG 280 ==
LOC: ER 04:09 → ERHOLD 08:50 → OBSVTOIN 08-17 06:40 → 2ND 08-17 12:14
PROVIDERS: ADMIT Hospitalist; ATTEND Internal Medicine Sleep Medicine
PROC: 4A023N7 Measurement of Cardiac Sampling and Pressure, Left Heart, Percutaneous Approach (ICD-10-PCS; principal; 2022-08-20)
PROC: B2111ZZ Fluoroscopy of Multiple Coronary Arteries using Low Osmolar Contrast (ICD-10-PCS; 2022-08-20)
PROC: 4A033BC Measurement of Arterial Pressure, Coronary, Percutaneous Approach (ICD-10-PCS; 2022-08-20)
DX: I13.0 Hypertensive heart and chronic kidney disease with heart failure and stage 1 through stage 4 chronic kidney disease, or unspecified chronic kidney disease (principal); I50.23 Acute on chronic systolic (congestive) heart failure; I21.A1 Myocardial infarction type 2; N17.9 Acute kidney failure, unspecified; N18.30 Chronic kidney disease, stage 3 unspecified; E11.22 Type 2 diabetes mellitus with diabetic chronic kidney disease; D63.1 Anemia in chronic kidney disease; E78.5 Hyperlipidemia, unspecified; I25.10 Atherosclerotic heart disease of native coronary artery without angina pectoris; Z95.5 Presence of coronary angioplasty implant and graft; Z88.8 Allergy status to other drugs, medicaments and biological substances; Z79.01 Long term (current) use of anticoagulants; Z79.82 Long term (current) use of aspirin; Z79.890 Hormone replacement therapy; Z79.899 Other long term (current) drug therapy; Z20.822 Contact with and (suspected) exposure to COVID-19
CPT/HCPCS: 36415; 71045; 76770; 76937; 78452; 80048; 80053; 80061; 80076; 83036; 83735; 83880; 84100; 84484; 85025; 85347; 87811; 93005; 93017; 93306; 93458; 93571; 96374; 96375; 99285; A9500; C1769; C1893; G0378; J0461; J1100; J1644; J1650; J1940; J2250; J2405; J2785; J3010; J7040; Q9967

== ENCOUNTER 2024-01-30 11:15 | Emergency (ER) | payer MEDICARE ==
--- OUTSIDE RECORDS SUMMARY | 2024-01-30 11:19 | XMS REPORT | Continuity of Care Document ---
Author Name Unknown Address [address] [place] [address] [facility] Address [address] [place] [address] Care Team Providers Care Inpatient Services Director Name Role Phone [place], [place] [facility] Physician Anupama Colvin Attending Clinician NICK_Harriet Attending Clinician Unavaila georgina Rivas --Ariella Attending Clinician Rob_r Attending Clinician Unavailable Doctor Unassigned, [place] Attending Clinician U Maria Isabel Murray Attending Clinician Aroldo Pearson Attending Clinician Cherry Bautista Attending Clinician MEGHAN GOLDMAN Attending Clinician Unavailable Meghan Goldman MD Attending Clinician [phone] Pob, [facility] Main Attending Clinician UnavailTaryn Alanis MD Attending Clinician [phone] TARYN JURADO Attending Clinician Unavailcorky Orellana RN, Fartun Fong Attending Clinician UnavailRIC Webb Attending Clinician Unavailable Ann Ross Attending Clinician [phone] Nils Jackman MD Attending Clinician [phone] Ric Davila MD Attending Clinician [phone] Endocrine, Tdc Attending Clinician Unavailable Eduardo Lynn MD Attending Clinician NICK_Otoniel_Carlos Admitting Clinician Unavailchristian Cronin Admitting Clinician Unavailable MEGHAN GOLDMAN Admitting Clinician Unavailable RIC DAVILA Admitting Clinician Unavailable Ric Davila MD Admitting Clinician Payers Payer Name Policy Type Policy Number Effective Date Expirati on Date Source [facility] (MEDICARE REPLACEMENT HMO) [id number] 2022 00:00:00 OSIEL CARIAS FROM [facility] [id number] 2021 00:00:00 2021 00:00:00 Problems Condition Name Condition Details Condition Category Status Onset Date Resolution Date Last Treatment Date Treating Clinician Comments Source Systolic CHF, acute on chronic Systolic CHF, acute on chronic Disease Active 2020-08 00:00: 00 [facility] Morbid obesity with body mass index of 40.0-49.9 Morbid obesity with body mass index of 40.0-49.9 Disease Active 2020-08 00:00: 00 [facility] Acute combined systolic and diastolic CHF, NYHA class 3 Acute combined systolic and diastolic CHF, NYHA class 3 Disease Active 2020-08 00:00: 00 [facility] Dyslipidem ia Dyslipidem ia Disease Active 2020-08 00:00: 00 [facility] Chronic anticoagul ation Chronic anticoagul ation Disease Active 2020-08 00:00: 00 [facility] Atrial fibrillati on Atrial fibrillati on Disease Active 12-12 00:00: 00 [facility] CAD (coronary artery disease) CAD (coronary artery disease) Disease Active 11-22 00:00: 00 [facility] CAD (coronary artery disease), chinik coronary artery CAD (coronary artery disease), [place] coronary artery Disease Active 10-12 00:00: 00 [facility] CAD (coronary artery disease), [place] coronary artery CAD (coronary artery disease), [place] coronary artery Disease Active 10-12 00:00: 00 [facility] SOB (shortness of breath) SOB (shortness of breath) Disease Active 08-23 00:00: 00 Overview: Formattin g of this note might be different from the original. Added automatic ally from request for surgery [id number] [facility] Atrial fibrillati on with RVR Atrial fibrillati on with RVR Disease Active 2017-08 00:00: 00 [facility] Obesity (BMI 30-39.9) Obesity (BMI 30-39.9) Disease Active 2017-08 00:00: 00 [facility] Atrial fibrillati on, unspecifie d type Atrial fibrillati on, unspecifie d type Disease Active 2017-08 00:00: 00 Overview: Formattin g of this note might be different from the original. Added automatic ally from request for surgery [id number] [facility] CHF (congestiv e heart failure) CHF (congestiv e heart failure) Disease Active [facility] Allergies, Adverse Reactions, Alerts Allergy Name Allergy Type Status Severity Reaction(s) Onset Date Inactive Date Treating Clinician Comments Source Buddy Inhibito rs Propensi ty to adverse reaction s Active Cough 2017-08 00:00: 00 [facility] BUDDY INHIBITO RS Drug Class Active COUGH 2017-08 00:00: 00 [facility] Buddy Inhibito rs Propensi ty to adverse reaction s Active Cough 2017-08 00:00: 00 [facility] Social History Social Habit Start Date Stop Date Quantity Comments Source Exposure to SARS-CoV-2 (event) 2021-12-25 00:00:00 2022-01-04 10:44:00 Not sure [facility] Education 2021-07-23 00:00:00 2021-07-23 00:00:00 12 [facility] Alcohol intake 2019-01-23 00:00:00 2019-01-23 00:00:00 Current non-drinker of alcohol (finding) [facility] Tobacco use and exposure 2018-08-17 00:00:00 2018-08-17 00:00:00 Smokeless tobacco non-user [facility] Sex Ass[birth year] At 1955 00:00:00 1955 00:00:00 [facility] Smoking Status Start Date Stop Date Source Never smoked tobacco [facility] Medications Ordered Medication Name Filled Medication Name Start Date Stop Date Current Medication? Ordering Clinician Indication Dosage Frequency Signature (SIG) Comments Components Source cholecalcif caleb, vitamin D3, 25 mcg (1,000 unit) tablet 2020-08 00:00: 00 Yes [id number] 2000U Take 2 tablets by mouth daily. [facility] aquaphilic ointment ointment 2020-08 00:00: 00 Yes [id number] Apply to area(s) daily. [facility] warfarin 5 mg tablet 12-20 00:00: 00 07-25 00:00 :00 No [id number] 9109 5mg Take 1 tablet by mouth every Tuesday in the evening. [facility] warfarin 2.5 mg tablet 12-17 00:00: 00 07-25 00:00 :00 No [id number] 9109 2.5mg Take 1 tablet by mouth every Tuesday in the evening. [facility] warfarin 2.5 mg tablet 12-16 00:00: 00 07-25 00:00 :00 No [id number] 9109 2.5mg Take 1 tablet by mouth every Tuesday in the evening. [facility] clopidogrel 75 mg tablet 12-15 00:00: 00 Yes [id number] 75mg Take 1 tablet by mouth daily.x 12 mos.hg [facility] omeprazole 40 mg capsule 12-15 00:00: 00 Yes [id number] 40mg Take 1 capsule by mouth at bedtime. [facility] polycarboph il (FIBER LAXATIVE, CA POLYCARBO,) 625 mg tablet 12-15 00:00: 00 Yes [id number] 9109 625mg Take 1 tablet by mouth 2 (two) times daily. 2 tablets daily [facility] carvedilol 6.25 mg tablet 12-15 00:00: 00 07-25 00:00 :00 No [id number] 6.25mg Take 1 tablet by mouth 2 (two) times daily. [facility] amiodarone 200 mg tablet 12-15 00:00: 00 07-25 00:00 :00 No [id number] 200mg Take 1 tablet by mouth daily. [facility] warfarin 5 mg tablet 12-15 00:00: 00 07-25 00:00 :00 No [id number] 5mg Take 1 tablet by mouth every Mon, Tu, Thurs and Fri in the evening. [facility] atorvastati n 80 mg tablet 12-15 00:00: 00 07-25 00:00 :00 No [id number] 80mg Take 1 tablet by mouth at bedtime. [facility] furosemide 20 mg tablet 12-15 00:00: 00 07-25 00:00 :00 No [id number] 20mg Take 1 tablet by mouth daily. [facility] aspirin 81 mg chewable tablet 12-15 00:00: 00 07-25 00:00 :00 No [id number] 81mg Take 1 tablet by mouth daily. [facility] spironolact one 25 mg tablet 12-15 00:00: 00 07-25 00:00 :00 No [id number] 25mg Take 1 tablet by mouth daily. [facility] levothyroxi ne 50 mcg tablet 12-15 00:00: 00 07-25 00:00 :00 No [id number] 50ug Take 1 tablet by mouth every morning. [facility] losartan 25 mg tablet 12-15 00:00: 00 07-25 00:00 :00 No [id number] 50mg Take 2 tablets by mouth daily.x 12 mos.hg [facility] Vital Signs Vital Name Observation Time Observation Value Comments Low [place] BMI 2019-01-23 14:51:00 35.29 kg/m2 [facility] Systolic blood pressure 2019-01-23 14:51:00 141 mm[Hg] [facility] Diastolic blood pressure 2019-01-23 14:51:00 53 mm[Hg] [place] [facility] Heart rate 2019-01-23 14:51:00 53 /min [facility] Body temperature 2019-01-23 14:51:00 36.67 Nithya [facility] Respiratory rate 2019-01-23 14:51:00 18 /min [facility] Body height 2019-01-23 14:51:00 175.3 cm [facility] Body weight 2019-01-23 14:51:00 108.41 kg [facility] Procedures Procedure Date / Time Performed Performing Clinician Source AUTHORIZATION FOR RELEASE OF PHI 2022-08-31 06:01:00 Doctor Unassigned, [place] [facility] US RETROPERITONEAL COMPLETE 2022-01-08 15:12:00 Meghan Goldman [facility] CBC WITH DIFF 2022-01-04 16:09:00 Meghan Goldman [facility] FREE T4 2019-01-23 15:01:00 [facility]ardo [facility] TRIIODOTHYRONINE 2019-01-23 15:01:00 Eduardo Lynn [facility] THYROID STIMULATING HORMONE 2019-01-23 15:01:00 Eduardo Lynn [facility] Encounters Start Date/Time End Date/Time Encounter Type Admission Type Attending Clinicians Care Facility Care Department Encounter ID Source 2023-12-29 17:30:00 2023-12-29 18:00:00 Care Rhina Colvin 2.16.840. [id number] [id number] [facility] 2023-04-28 00:00:00 2023-04-28 00:00:00 Outpatient NICK_Samanta Gonzalez AO AO [id number] [facility] 2023-04-28 00:00:00 2023-04-28 00:00:00 Outpatient NICK_Samanta CUADRA AO [id number] [facility] 2023-04-06 00:00:00 2023-04-06 00:00:00 Outpatient FOG_Samanta Gonzalez AOSM AOSM [id number] [facility] 2023-04-06 00:00:00 2023-04-06 00:00:00 Outpatient FOG_Samanta Gonzalez AOSM AOSM [id number] [facility] 2023-04-06 00:00:00 2023-04-06 00:00:00 Outpatient FOG_Samanta Gonzalez AOSM AOSM [id number] [facility] 2023-04-01 00:00:00 2023-04-01 00:00:00 Outpatient FOG_Samanta Gonzalez AOSM AOSM [id number] [facility] 2023-02-09 13:55:00 2023-02-09 14:15:00 Care [facility] Ariella Rivas 2.16.840. [id number] 2.16.840.1. [id number] [facility] 2022-10-04 20:00:00 2022-10-04 21:00:00 CAV Ariella Rivas 2.16.840. [id number] 2.16.840.1. [id number] [facility] 2022-09-28 00:00:00 2022-09-28 00:00:00 Outpatient Weaver_r DMG DM [id number] [facility] 2022-09-28 00:00:00 2022-09-28 00:00:00 Outpatient Weaver_r DMG DMG [id number] [facility] 2022-09-28 00:00:00 2022-09-28 00:00:00 Outpatient Weaver_r DMG DMG [id number] [facility] 2022-08-31 00:00:00 2022-08-31 00:00:00 Orders Only Doctor Unassigned, [place] [facility] 1.2.840.114 350.1.13.10 4.2.7.2.686 [id number] [facility] 2022-07-13 14:30:00 2022-07-13 15:00:00 Care Rhina Rodriguezalesia Mancini 2.16.840. [id number] 2.16.840.1. [id number] [facility] 2022-03-05 00:00:00 2022-03-05 00:00:00 [facility] [id number] [facility] 2022-03-03 15:00:00 2022-03-03 15:30:00 Care Rhina Pearson 2.16.840. [id number] 2.16.840.1. [id number] [facility] 2022-03-02 19:00:00 2022-03-02 20:00:00 MELA Cherry Bautista 2.16.840. [id number] 2.16.840.1. [id number] [facility] 2022-01-11 12:00:00 2022-01-11 12:00:00 [facility] [id number] [facility] 2022-01-08 09:24:48 2022-01-08 23:59:00 Outpatient R MEGHAN GOLDMAN [facility] [id number] [facility] 2022-01-08 09:24:48 2022-01-08 23:59:00 Hospital Encounter Meghan Goldman [facility] 1.2.840.114 350.1.13.10 4.2.7.2.686 [id number] [facility] 2022-01-04 11:15:00 2022-01-04 11:30:00 Roller Operator Visit [facility] 1.2.840.114 350.1.13.10 4.2.7.2.686 [id number] [facility] 2022-01-04 11:15:00 2022-01-04 11:15:00 [id number] [facility] 2022-01-04 00:00:00 2022-01-04 00:00:00 Orders Only Doctor Unassigned, [place] [facility] 1.2840.114 350.1.13.10 4.2.7.2.686 [id number] [facility] 2021-09-09 14:15:00 2021-09-09 14:30:00 Roller Operator Visit [facility] 1.2840.114 350.1.13.10 4.2.7.2.686 [id number] [facility] 2021-09-09 14:15:00 2021-09-09 14:15:00 Outpatient Bala [facility] [id number] [facility] 2021-09-09 00:00:00 2021-09-09 00:00:00 Orders Only Doctor Unassigned, [place] [facility] 1.2840.114 350.1.13.10 4.2.7.2.686 [id number] [facility] 2021-09-02 00:00:00 2021-09-02 00:00:00 Orders Only Doctor Unassigned, [place] [facility] 1.2840.114 350.1.13.10 4.2.7.2.686 [id number] [facility] 2021-07-27 00:00:00 2021-07-27 00:00:00 Transition of Care Fartun Orellana 1.2.840.114 350.1.13.10 4.2.7.2.686 [id number] [facility] 2021-07-23 12:00:00 2021-07-25 12:05:00 Inpatient X LEATHA ROSY [facility] [id number] [facility] 2021-07-23 12:00:00 2021-07-25 12:05:00 Hospital Encounter Ann Meier Yaman Lakhani, Adnan [facility] 1.2.840.114 350.1.13.10 4.2.7.2.686 [id number] [facility] 2019-01-23 13:00:00 2019-01-23 16:39:00 Office Visit Endocrine, Tdc Eduardo Lynn [facility] 1.2.840.114 350.1.13.10 4.2.7.2.686 [id number] [facility] Results Test Description Test Time Test Comments Results Result Co mments Source [facility] 17:13:00* Test Item Value Reference Range Interpretation Comme nts T3 (test code = 1991912894) 103.0 ng/dL 97.0-170.0 Lab Interpretation (test cod e = 11125-1) Normal [facility] 17:13:00* Test Item Value Reference Range Interpretation Comme nts T3 (test code = 6259871610) 103.0 ng/dL 97.0-170.0 Lab Interpretation (test cod e = 46210-0) Normal [facility] [id number] 16:08:00 * Test Item Value Reference Range Interpretation Comme nts TSH (test code = 6341901697) 2.57 See_Comment [Automated messa ge] The system which generated this result transmitted reference range: 0.45 - 4.70 mIU/L. The reference range was not used to interpret this result as normal/abnormal. Lab Interpretation (test code = 50388-2) Normal [facility] [id number] 16:08:00 * Test Item Value Reference Range Interpretation Comme nts TSH (test code = 3600494012) 2.57 See_Comment [Automated messa ge] The system which generated this result transmitted reference range: 0.45 - 4.70 mIU/L. The reference range was not used to interpret this result as normal/abnormal. Lab Interpretation (test code = 94146-8) Normal [place] 013[address]2019-06-04 15:54:00* Test Item Value Reference Range Interpretation Comme nts FREE T4 (test code = 3217991941) 1.21 See_Comment [Automated messa ge] The system which generated this result transmitted reference range: 0.78 - 2.20 ng/dL:. The reference range was not used to interpret this result as normal/abnormal. Lab Interpretation (test code = 43145-2) Normal [facility] [id number] 15:54:00* Test Item Value Reference Range Interpretation Comme nts FREE T4 (test code = 8204446008) 1.21 See_Comment [Automated messa ge] The system which generated this result transmitted reference range: 0.78 - 2.20 ng/dL:. The reference range was not used to interpret this result as normal/abnormal. Lab Interpretation (test code = 07021-4) Normal [facility]
[2024-01-30] MEDS ORDERED: ONDANSETRON 4 MG/2 ML VIAL ONE (11:49)
[2024-01-30] MEDS ORDERED: NA CHLORIDE 0.9% 1,000 ML ONE (11:50)
[2024-01-30] MEDS ORDERED: MORPHINE 4 MG/ML SYR ONE (11:50)
[2024-01-30 12:19] LABS: Absolute Basophils 0.1 K/uL (0-0.5); Absolute Eosinophils 0.2 K/uL (0-0.5); Absolute Monocytes 0.5 K/uL (0.1-1.3); Absolute Neutrophil 6.6 K/uL (1.8-8.0); Basophils % 0.9 % (0-1.3); Eosinophils % 2.5 % (0-4.4); Hematocrit 43.5 % (39.6-49.0); Hemoglobin 14.1 g/dL (13.6-17.9); Lymphocytes % 11.6 % (15.3-44.8); MCH 27.5 pg (27.0-35.0); MCHC 32.3 g/dL (32.0-36.0); MPV 9.4 fL (7.6-11.3); Monocytes % 5.5 % (3.3-12.3); Neutrophils % 79.5 % (41.7-73.7); Platelets 206 thou/uL (152-406); RBC Red Blood Cell Count 5.12 M/uL (4.33-5.43); Red Cell Distribution Width 14.8 % (12.1-15.2)
[2024-01-30 12:32] LABS: Albumin 3.5 g/dL (3.4-5.0); Alkaline Phosphatase 71 U/L (45-117); Anion Gap 9.9 mEq/L (5.0-15.0); BUN Blood Urea Nitrogen 26 mg/dL (7-18); Bicarbonate 23 mEq/L (21-32); Bilirubin Total 0.5 mg/dL (0.2-1.0); Globulin 3.4 g/dL (2.3-3.5); Glomerular Filtration Rate 56 ml/min (=/>90); Glucose Level 196 mg/dL (74-106); Lipase 27 U/L (13-75); Potassium 3.9 mEq/L (3.5-5.1); Protein, Total 6.9 g/dL (6.4-8.2); Sodium Level 135 mEq/L (136-145)
[2024-01-30 12:34] LABS: ALT/SGPT < 14 U/L (16-61); AST/SGOT < 10 U/L (15-37)
--- NOTE | 2024-01-30 12:35 | RAD REPORT ---
EXAM DESCRIPTION: CTAbdomen Pelvis W Contrast - 01/30/2024 12:17 pm CLINICAL HISTORY: Abdominal pain. LLQ pain;Abd pain COMPARISON: No comparisons TECHNIQUE: Biphasic CT imaging of the abdomen and pelvis was performed with 100 ml non-ionic IV cont rast. All CT scans are performed using dose optimization technique as appropriate and may include automated exposure control or mA/KV adjustment according to patient size. FINDINGS: The lung bases are clear. The liver, spleen, pancreas, right adrenal gland and kidneys are within normal limits. 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 No bowel obstruction, free air, free fluid or abscess. 7 cm length of the sigmoid colon in the left l ower quadrant shows moderate inflammation and numerous diverticula. This favors acute diverticulitis. No peridiverticular abscess seen. Moderate stool is present throughout the colon. The appendix is no rmal. No evidence of significant lymphadenopathy. No suspicious bony findings. IMPRESSION: 7 cm length of sigmoid colon in the left lower quadrant shows moderate surrounding infla mmation likely representing acute diverticulitis. No abscess evident. After appropriate therapy, colo noscopy would be recommended for followup assessment of this region and to exclude underlying mass.
[2024-01-30] MEDS ORDERED: CIPROFLOXACIN 400mg IV 400 MG/200 ML BAG IV ONE (12:46)
[2024-01-30] MEDS ORDERED: METRONIDAZOLE 500mg IVPB 500 MG/100 ML BAG IV ONE (12:46)
[2024-01-30 13:10] LABS: Specific Gravity 1.016 (1.005-1.030); Urine Bilirubin NEGATIVE (Negative); Urine Blood Negative (Negative); Urine Clarity Clear (Clear); Urine Color Colorless (Yellow); Urine Glucose 4+ (Over) (Negative); Urine Ketones NEGATIVE (Negative); Urine Microscopic Reflex YN NO UMIC; Urine Nitrite NEGATIVE (Negative); Urine Protein NEGATIVE (Negative); Urine Urobilinogen Normal (Normal); Urine pH 5.5 (5.0-7.0)
--- NOTE | 2024-01-30 13:49 | EDPHYS ---
Physician Documentation [facility] Name: Darryl Madrigal Age: 68 yrs Sex: Male : 1955 Arrival Date: 01/30/2024 Time: 11:15 Bed 16 Private MD: ED Physician Talisha Lester HPI: 01/29 12:37 This 68 yrs old Male presents to ER via Wheelchair with complaints of Abdominal Pain. sp3 12:37 68-year-old male with history of hypertension and prior diverticulitis presents with sp3 left lower quadrant abdominal pain for 5 days worsening in nature. He says he also has mild diarrhea. He denies fever, URI symptoms, chest pain, shortness of breath, upper abdominal pain, flank pain, dysuria or urinary frequency, melena, isabel blood per rectum, syncope, near syncope, or any other signs or symptoms on ROS at this time.. Historical: - Allergies: 11:19 RICHARD INHIBITORS; bp - Immunization history:: Adult Immunizations. - Infectious Disease History:: Denies. - Social history:: Smoking status: Patient denies any tobacco usage or history of. ROS: 12:38 Constitutional: Negative for fever, chills, and weight loss, Eyes: Negative for injury, sp3 pain, redness, and discharge, ENT: Negative for injury, pain, and discharge, Neck: Negative for injury, pain, and swelling, Cardiovascular: Negative for chest pain, palpitations, and edema, Respiratory: Negative for shortness of breath, cough, wheezing, and pleuritic chest pain, Back: Negative for injury and pain, MS/Extremity: Negative for injury and deformity, Skin: Negative for injury, rash, and discoloration, Neuro: Negative for headache, weakness, numbness, tingling, and seizure, Psych: Negative for depression, anxiety, suicide ideation, homicidal ideation, and hallucinations, Allergy/Immunology: Negative for hives, rash, and allergies, Endocrine: Negative for neck swelling, polydipsia, polyuria, polyphagia, and marked weight changes, Hematologic/Lymphatic: Negative for swollen nodes, abnormal bleeding, and unusual bruising, 12:38 All other systems are negative, Exam: 12:38 Constitutional: This is a well developed, well nourished patient who is awake, alert, sp3 and in no acute distress. Head/Face: Normocephalic, atraumatic. Eyes: Pupils equal round and reactive to light, extra-ocular motions intact. Lids and lashes normal. Conjunctiva and sclera are non-icteric and not injected. Cornea within normal limits. Periorbital areas with no swelling, redness, or edema. ENT: Nares patent. No nasal discharge, no septal abnormalities noted. External auditory canals are clear. Oropharynx with no redness, swelling, or masses, exudates, or evidence of obstruction, uvula midline. Mucous membranes moist. Neck: Trachea midline, no thyromegaly or masses palpated, and no cervical lymphadenopathy. Supple, full range of motion without nuchal rigidity, or vertebral point tenderness. No Meningismus. Chest/axilla: Normal chest wall appearance and motion. Nontender with no deformity. No lesions are appreciated. Cardiovascular: Regular rate and rhythm with a normal S1 and S2. No gallops, murmurs, or rubs. Normal PMI, no JVD. No pulse deficits. Respiratory: Lungs have equal breath sounds bilaterally, clear to auscultation and percussion. No rales, rhonchi or wheezes noted. No increased work of breathing, no retractions or nasal flaring. Back: No spinal tenderness. No costovertebral tenderness. Full range of motion. Skin: Warm, dry with normal turgor. Normal color with no rashes, no lesions, and no evidence of cellulitis. MS/ Extremity: Pulses equal, no cyanosis. Neurovascular intact. Full, normal range of motion. Neuro: Awake and alert, GCS 15, oriented to person, place, time, and situation. Cranial nerves II-XII grossly intact. Motor strength 5/5 in all extremities. Sensory grossly intact. Cerebellar exam normal. Normal gait. Psych: Awake, alert, with orientation to person, place and time. Behavior, mood, and affect are within normal limits. 12:38 Abdomen/GI: Patient with left lower quad abdominal pain to palpation without peritoneal signs, rebound or guarding. Nonsurgical abdomen on exam., Vital Signs: 11:21 BP 98 / 60; Pulse 60; Resp 16; Temp 98; Pulse Ox 99% ; bp 12:05 BP 115 / 51; Pulse 60; Resp 18; Pulse Ox 100% on R/A; mb9 13:05 BP 108 / 53; Pulse 52; Resp 17; Pulse Ox 98% on R/A; ll1 14:05 BP 116 / 54; Pulse 59; Resp 18; Pulse Ox 98% ; ap3 MDM: 11:19 Patient medically screened. sp3 12:39 Data reviewed: vital signs, nurses notes, lab test result(s), radiologic studies. ED sp3 course: 68-year-old male with left lower quadrant abdominal pain differential diagnosis includes diverticulitis, other colitis, UTI/pyelonephritis spectrum and to a lesser degree aortic pathology. I am not highly suspicious for sepsis or shock or intestinal perforation. This workup will include CT scan of the abdomen pelvis, laboratory values, UA and morphine and ondansetron IV for pain control.. ED course: After review of CT scan, patient has left lower quadrant diverticulitis uncomplicated and without abscess. Laboratory values are within normal limits except for small bump in creatinine. WBC count is normal. Vital signs continue to be normal. Will give IV antibiotics first dose in ED and discharge patient home on p.o. antibiotics and follow-up to PCP. No admission criteria present.. 01/29 11:43 Order name: CBC with Diff; Complete Time: 12:36 sp3 01/29 11:43 Order name: CMP; Complete Time: 12:36 sp3 01/29 11:43 Order name: Lipase; Complete Time: 12:36 sp3 01/29 11:43 Order name: Urinalysis w/ reflexes; Complete Time: 13:14 sp3 01/29 11:43 Order name: CT Abd/Pelvis - IV Contrast Only; Complete Time: 12:36 sp3 01/29 11:43 Order name: IV Saline Lock; Complete Time: 11:46 sp3 01/29 11:43 Order name: Labs collected and sent; Complete Time: 11:46 sp3 Administered Medications: 12:00 Drug: Ondansetron IVP 4 mg IVP once; over 2 minutes Route: IVP; Site: left forearm; mb9 12:29 Follow up: Response: No adverse reaction mb9 12:05 Drug: NS 0.9% IV 1000 ml IV at 1 bolus Per protocol; 1000 mL bolus Route: IV; Rate: 1 mb9 bolus; Site: left forearm; 14:07 Follow up: IV Status: Completed infusion; IV Intake: 1000ml ap3 12:05 Drug: morphine IVP or IV 4 mg IVP once over 4 mins Route: IVP; Infused Over: 4 mins; mb9 Site: left forearm; 12:29 Follow up: Response: No adverse reaction mb9 12:49 Drug: metroNIDAZOLE IVPB 500 mg 100 ml IVPB at 200 ml/hr once over 30 mins Volume: 100 mb9 ml; Route: IVPB; Rate: 200 ml/hr; Infused Over: 30 mins; Site: left forearm; 14:06 Follow up: IV Status: Completed infusion ap3 14:06 Drug: Ciprofloxacin IVPB 400 mg 200 ml IVPB once over 60 mins Volume: 200 ml; Route: ap3 IVPB; Infused Over: 60 mins; Site: left forearm; 15:09 Follow up: IV Status: Completed infusion ap3 14:06 Drug: NS 0.9% IV 500 ml IV at bolus once Route: IV; Rate: bolus; Site: left forearm; ap3 15:08 Follow up: IV Status: Completed infusion; IV Intake: 500ml ap3 Disposition Summary: 01/30/24 13:48 Discharge Ordered Notes: Location: Home sp3 Condition: Stable sp3 Diagnosis - Diverticulitis of intestine, part unspecified, without perforation or abscess sp3 without bleeding Followup: sp3 - With: Private Physician - When: Upon discharge from the Emergency Department - Reason: Continuance of care Discharge Instructions: - Discharge Summary Sheet sp3 - Diverticulitis sp3 Forms: - Medication Reconciliation Form sp3 - Antibiotic Education sp3 - Prescription Opioid Use sp3 - Patient Portal Instructions sp3 - Leadership Thank You Letter sp3 Prescriptions: - Cipro 500 mg Oral Tablet - take 1 tablet ORAL route every 12 hours for 10 days; 20 tablet; Refills: 0, sp3 Product Selection Permitted - Flagyl 500 mg Oral Tablet - take 1 tablet ORAL route every 8 hours for 10 days; 30 tablet; Refills: 0, sp3 Product Selection Permitted - Tramadol 50 mg Oral Tablet - take 1 tablet ORAL route every 8 hours as needed; 12 tablet; Refills: 0, sp3 Product Selection Permitted Signatures: Dispatcher [employer] Aron Diane RN RN Rachelle Porras RN RN ap3 Talisha Lester MD MD sp3 Lynne Chisholm RN RN mb9 Corrections: (The following items were deleted from the chart) 11:44 11:44 CBC+H.LAB.BRZ ordered. EDMS EDMS 11:44 11:44 COMPREHENSIVE METABOLIC PANEL+C.LAB.BRZ ordered. EDMS EDMS 11:44 11:44 LIPASE+C.LAB.BRZ ordered. EDMS EDMS 11:44 11:44 Urinalysis+U.LAB.BRZ ordered. EDMS EDMS 11:44 11:44 Abdomen Pelvis W Con+CT.RAD.BRZ ordered. EDMS EDMS
--- NOTE | 2024-01-30 13:49 | ER ---
Nurse's Notes [facility] Name: Darryl Madrigal Age: 68 yrs Sex: Male : 1955 Arrival Date: 01/30/2024 Time: 11:15 Bed 16 Private MD: Diagnosis: Diverticulitis of intestine, part unspecified, without perforation or abscess without bleeding Presentation: 01/29 11:18 Chief complaint: SENT BY DR HDZ PCP FOR EMERGENT CT. Coronavirus screen: At this bp time, the client does not indicate any symptoms associated with coronavirus-19. Ebola Screen: No symptoms or risks identified at this time. Initial Sepsis Screen: Does the patient meet any 2 criteria? No. Patient's initial sepsis screen is negative. Does the patient have a suspected source of infection? No. Patient's initial sepsis screen is negative. Risk Assessment: Do you want to hurt yourself or someone else? Patient reports no desire to harm self or others. Onset of symptoms is unknown. 11:18 Method Of Arrival: Wheelchair bp 11:21 Acuity: [place] 3 bp Triage Assessment: 11:21 General: Appears distressed, uncomfortable, Behavior is cooperative, appropriate for bp age, anxious. Pain: Complains of pain in abdomen. GI: Reports lower abdominal pain. Historical: - Allergies: 11:19 RICHARD INHIBITORS; bp - Immunization history:: Adult Immunizations. - Infectious Disease History:: Denies. - Social history:: Smoking status: Patient denies any tobacco usage or history of. Screenin:44 [facility] ED Fall Risk Assessment (Adult) History of falling in the last 3 months, mb9 including since admission No falls in past 3 months (0 pts) Confusion or Disorientation No (0 pts) Intoxicated or Sedated No (0 pts) Impaired Gait No (0 pts) Mobility Assist Device Used No (0 pt) Altered Elimination No (0 pt) Score/Fall Risk Level 0 - 2 = Low Risk Oriented to surroundings, Maintained a safe environment, Educated pt \T\ family on fall prevention, incl call for assistance when getting out of bed. Abuse screen: Denies threats or abuse. Nutritional screening: No deficits noted. Tuberculosis screening: No symptoms or risk factors identified. Assessment: 11:42 General: Appears in no apparent distress. Behavior is calm, cooperative. Pain: mb9 Complains of pain in abdomen Pain radiates to LLQ Quality of pain is described as throbbing, Pain began suddenly, Is continuous. Neuro: Palafox Agitation-Sedation Scale (RASS): 0 - Alert and Calm Level of Consciousness is awake, alert, obeys commands, Oriented to person, place, time, situation, Appropriate for age. Cardiovascular: Heart tones S1 S2 present Patient's skin is warm and dry. Respiratory: Airway is patent Breath sounds are clear bilaterally. GI: Abdomen is round non-distended, Bowel sounds present X 4 quads. Abd is soft Abdomen is tender to palpation in left lower quadrant. : No signs and/or symptoms were reported regarding the genitourinary system. EENT: No signs and/or symptoms were reported regarding the EENT system. Derm: Skin is pink, warm \T\ dry. Musculoskeletal: Range of motion: intact in all extremities. 13:05 Reassessment: No changes from previously documented assessment. Patient and/or family ll1 updated on plan of care and expected duration. Pain level reassessed. 14:08 General: Appears patient reported feeling weak after morphine. provider notified. new ap3 orders received for 500ml NS IV bolus X's 1.. 14:12 Reassessment: awaiting transfusion of antibiotics and fluids prior to patients ap3 discharge. Vital Signs: 11:21 BP 98 / 60; Pulse 60; Resp 16; Temp 98; Pulse Ox 99% ; bp 12:05 BP 115 / 51; Pulse 60; Resp 18; Pulse Ox 100% on R/A; mb9 13:05 BP 108 / 53; Pulse 52; Resp 17; Pulse Ox 98% on R/A; ll1 14:05 BP 116 / 54; Pulse 59; Resp 18; Pulse Ox 98% ; ap3 ED Course: 11:16 Patient arrived in ED. mr 11:18 Talisha Lester MD is Attending Physician. sp3 11:21 Arm band placed on. bp 11:22 Triage completed. bp 11:35 Lynne Chisholm RN is Primary Nurse. mb9 11:42 Inserted saline lock: 20 gauge in left forearm, using aseptic technique. mb9 11:43 Placed in gown. Bed in low position. Call light in reach. Side rails up X 1. Provided mb9 Education on: press call light if needing anything. Client placed on continuous cardiac and pulse oximetry monitoring. NIBP monitoring applied. 12:05 Initial lab(s) drawn, by me, sent to lab. mb9 12:17 CT Abd/Pelvis - IV Contrast Only In Process Unspecified. EDMS 12:54 Urine collected: clean catch specimen, clear. mb9 15:08 No provider procedures requiring assistance completed. IV discontinued, intact, ap3 bleeding controlled, No redness/swelling at site. Pressure dressing applied. Administered Medications: 12:00 Drug: Ondansetron IVP 4 mg IVP once; over 2 minutes Route: IVP; Site: left forearm; mb9 12:29 Follow up: Response: No adverse reaction mb9 12:05 Drug: NS 0.9% IV 1000 ml IV at 1 bolus Per protocol; 1000 mL bolus Route: IV; Rate: 1 mb9 bolus; Site: left forearm; 14:07 Follow up: IV Status: Completed infusion; IV Intake: 1000ml ap3 12:05 Drug: morphine IVP or IV 4 mg IVP once over 4 mins Route: IVP; Infused Over: 4 mins; mb9 Site: left forearm; 12:29 Follow up: Response: No adverse reaction mb9 12:49 Drug: metroNIDAZOLE IVPB 500 mg 100 ml IVPB at 200 ml/hr once over 30 mins Volume: 100 mb9 ml; Route: IVPB; Rate: 200 ml/hr; Infused Over: 30 mins; Site: left forearm; 14:06 Follow up: IV Status: Completed infusion ap3 14:06 Drug: Ciprofloxacin IVPB 400 mg 200 ml IVPB once over 60 mins Volume: 200 ml; Route: ap3 IVPB; Infused Over: 60 mins; Site: left forearm; 15:09 Follow up: IV Status: Completed infusion ap3 14:06 Drug: NS 0.9% IV 500 ml IV at bolus once Route: IV; Rate: bolus; Site: left forearm; ap3 15:08 Follow up: IV Status: Completed infusion; IV Intake: 500ml ap3 Medication: 11:44 VIS not applicable for this client. mb9 Intake: 14:07 IV: 1000ml; Total: 1000ml. ap3 15:08 IV: 500ml; Total: 1500ml. ap3 Outcome: 13:48 Discharge ordered by . sp3 15:08 Discharged to home ambulatory, ap3 15:08 Condition: good 15:08 Discharge instructions given to patient, Instructed on discharge instructions, follow up and referral plans. medication usage, Demonstrated understanding of instructions, follow-up care, medications, Prescriptions given X 3, 15:09 Patient left the ED. ap3 Signatures: Dispatcher [employer] EDPA ArunLynne, Alonzo Rosado FaustoAron, RN RN bp Rachelle Doll RN RN ap3 Sanjana Kruger RN RN ll1 Talisha Lester MD MD sp3 Lynne Chisholm RN RN mb9 Corrections: (The following items were deleted from the chart) 11:22 11:18 Chief complaint: SENT BY PCP FOR EMERGENT CT bp bp
[2024-01-30] MEDS ORDERED: NA CHLORIDE 0.9% 500 ML ONE (13:58)
[2024-01-30 15:37] VITALS: BP 116/54; TEMP 98; O2SAT 98
== END 2024-01-30 15:09 | disposition home or self-care (01) ==
LOC: ER 11:15
DX: K57.32 Diverticulitis of large intestine without perforation or abscess without bleeding (principal)
CPT/HCPCS: 96365; 96367; 96361; 85025; 36415; 81003; 83690; 80053; 74177; 96375; 99284; Q9967; J2405; J0744; J7040; J7030

== ENCOUNTER 2024-07-16 16:34 | Emergency (ER) | payer MEDICARE ==
--- OUTSIDE RECORDS SUMMARY | 2024-07-16 16:38 | XMS REPORT | Continuity of Care Document ---
Author Name Unknown Address [address] [place] [address] [facility] thconnect Address [address] [place] [address] Care Team Providers Care Sales Support Coordinator Name Role Phone [facility] [place] Dept Of Primary Care Physician Anoop Small Attending Clinician Anupama Colvin Attending Clinician NICK_Otoniel_Mekhi_ Attending Clinician Unavailchristian Rivas --Ariella Attending Clinician Rob_bala Attending Clinician Unavailable Doctor Unassigned, Tamms Attending Clinician U Maria Isabel Murray Attending Clinician Aroldo Pearson Attending Clinician Cherry Bautista Attending Clinician [phone] MEGHAN GOLDMAN Attending Clinician Unavailable Meghan Goldman MD Attending Clinician [phone] Pob, Adc Lab Main Attending Clinician Erendira Jurado MD, Taryn Attending Clinician [phone] TARYN JURADO Attending Clinician Unavailcorky Orellana RN, Fartun Fong Attending Clinician Unavailab RIC Ramirez Attending Clinician Unavailable Ann Ross Attending Clinician [phone] Nils Jackman MD Attending Clinician [phone] Ric Davila MD Attending Clinician [phone] Endocrine, Tdc Attending Clinician Unavailable Eduardo Lynn MD Attending Clinician [phone] NICK_Otoniel_Carlos Admitting Clinician Unavailchristian Cronin Admitting Clinician Unavailable MEGHAN GOLDMAN Admitting Clinician Unavailable RIC DAVILA Admitting Clinician Unavailable Ric Davila MD Admitting Clinician Payers Payer Name Policy Type Policy Number Effective Date Expirati on Date Source [facility] (MEDICARE REPLACEMENT HMO) [id number] 2022 00:00:00 OSIEL CARIAS FROM [facility] [id number] 2021 00:00:00 2021 00:00:00 Problems Condition Name Condition Details Condition Category Status Onset Date Resolution Date Last Treatment Date Treating Clinician Comments Source Systolic CHF, acute on chronic Systolic CHF, acute on chronic Disease Active 2020-08 00:00: 00 [facility] Morbid obesity with body mass index of 40.0-49.9 Morbid obesity with body mass index of 40.0-49.9 Disease Active 2020-08 00:00: 00 [facility] Acute combined systolic and diastolic CHF, NYHA class 3 Acute combined systolic and diastolic CHF, NYHA class 3 Disease Active 2020-08 00:00: 00 [facility] Dyslipidem ia Dyslipidem ia Disease Active 2020-08 00:00: 00 [facility] Chronic anticoagul ation Chronic anticoagul ation Disease Active 2020-08 00:00: 00 [facility] Atrial fibrillati on Atrial fibrillati on Disease Active - 00:00: 00 [facility] CAD (coronary artery disease) CAD (coronary artery disease) Disease Active 4-03 00:00: 00 [facility] CAD (coronary artery disease), [place] coronary artery CAD (coronary artery disease), [place] coronary artery Disease Active 2-21 00:00: 00 [facility] CAD (coronary artery disease), [place] coronary artery CAD (coronary artery disease), [place] coronary artery Disease Active 10-12 00:00: 00 [facility] SOB (shortness of breath) SOB (shortness of breath) Disease Active 08-23 00:00: 00 Overview: Formattin g of this note might be different from the original. Added automatic ally from request for surgery [id number] [facility] Atrial fibrillati on with RVR Atrial fibrillati on with RVR Disease Active 2017-08 00:00: 00 [facility] Obesity (BMI 30-39.9) Obesity (BMI 30-39.9) Disease Active 2017-08 00:00: 00 [facility] Atrial fibrillati on, unspecifie d type Atrial fibrillati on, unspecifie d type Disease Active 2017-08 00:00: 00 Overview: Formattin g of this note might be different from the original. Added automatic ally from request for surgery [id number] [facility] CHF (congestiv e heart failure) CHF (congestiv e heart failure) Disease Active [facility] Allergies, Adverse Reactions, Alerts Allergy Name Allergy Type Status Severity Reaction(s) Onset Date Inactive Date Treating Clinician Comments Source Buddy Inhibito rs Propensi ty to adverse reaction s Active Cough 2017-08 00:00: 00 [facility] BUDDY INHIBITO RS Drug Class Active COUGH 2017-08 00:00: 00 [facility] Buddy Inhibito rs Propensi ty to adverse reaction s Active Cough 2017-08 00:00: 00 [facility] BUDDY Inhibito rs Drug Allergy Active Severe [facility] Social History Social Habit Start Date Stop Date Quantity Comments Source Exposure to SARS-CoV-2 (event) 2021-12-25 00:00:00 2022-01-04 10:44:00 Not sure [facility] Education 2021-07-23 00:00:00 2021-07-23 00:00:00 12 [facility] Alcohol intake 2019-01-23 00:00:00 2019-01-23 00:00:00 Current non-drinker of alcohol (finding) [facility] Tobacco use and exposure 2018-08-17 00:00:2018-08-17 00:00:00 Smokeless tobacco non-user [facility] Sex Ass[birth year] At 1955 00:00:00 1955 00:00:00 [facility] Smoking Status Start Date Stop Date Source Never smoked tobacco [facility] Medications Ordered Medication Name Filled Medication Name Start Date Stop Date Current Medication? Ordering Clinician Indication Dosage Frequency Signature (SIG) Comments Components Source cholecalcif caleb, vitamin D3, 25 mcg (1,000 unit) tablet 2020-08 00:00: 00 Yes [id number] 2000U Take 2 tablets by mouth daily. [facility] aquaphilic ointment ointment 2020-08 00:00: 00 Yes [id number] Apply to area(s) daily. [facility] warfarin 5 mg tablet 12-20 00:00: 00 07-25 00:00 :00 No [id number] 9109 5mg Take 1 tablet by mouth every Tuesday in the evening. [facility] warfarin 2.5 mg tablet 12-17 00:00: 00 07-25 00:00 :00 No [id number] 9109 2.5mg Take 1 tablet by mouth every Tuesday in the evening. [facility] warfarin 2.5 mg tablet 12-16 00:00: 00 07-25 00:00 :00 No [id number] 9109 2.5mg Take 1 tablet by mouth every Tuesday in the evening. [facility] clopidogrel 75 mg tablet 12-15 00:00: 00 Yes [id number] 75mg Take 1 tablet by mouth daily.x 12 mos.hg [facility] omeprazole 40 mg capsule 12-15 00:00: 00 Yes [id number] 40mg Take 1 capsule by mouth at bedtime. [facility] polycarboph il (FIBER LAXATIVE, CA POLYCARBO,) 625 mg tablet 12-15 00:00: 00 Yes [id number] 9109 625mg Take 1 tablet by mouth 2 (two) times daily. 2 tablets daily [facility] amiodarone 200 mg tablet 12-15 00:00: 07-25 00:00 :00 No [id number] 200mg Take 1 tablet by mouth daily. [facility] warfarin 5 mg tablet 12-15 00:00: 07-25 00:00 :00 No [id number] 5mg Take 1 tablet by mouth every Mon, Tues, Thurs and Fri in the evening. [facility] atorvastati n 80 mg tablet 12-15 00:00: 00 07-25 00:00 :00 No [id number] 80mg Take 1 tablet by mouth at bedtime. [facility] furosemide 20 mg tablet 12-15 00:00: 07-25 00:00 :00 No [id number] 20mg Take 1 tablet by mouth daily. [facility] aspirin 81 mg chewable tablet 12-15 00:00: 07-25 00:00 :00 No [id number] 81mg Take 1 tablet by mouth daily. [facility] spironolact one 25 mg tablet 12-15 00:00: 07-25 00:00 :00 No [id number] 25mg Take 1 tablet by mouth daily. [facility] losartan 25 mg tablet 12-15 00:00: 00 07-25 00:00 :00 No [id number] 50mg Take 2 tablets by mouth daily.x 12 mos.hg [facility] furosemide 80 mg tablet furosemide 80 mg tablet Yes [facility] spironolact one 50 mg tablet spironolact one 50 mg tablet Yes [facility] PROCTO-MED HC 2.5 % CREAM PROCTO-MED HC 2.5 % CREAM Yes [facility] carvedilol 6.25 mg tablet carvedilol 6.25 mg tablet Yes [facility] XARELTO 20 MG TABLET XARELTO 20 MG TABLET Yes [facility] FARXIGA 5 MG TABLET FARXIGA 5 MG TABLET Yes [facility] levothyroxi ne sodium 50 mcg tablet levothyroxi ne sodium 50 mcg tablet Yes [facility] atorvastati n calcium 40 mg tablet atorvastati n calcium 40 mg tablet Yes [facility] Vital Signs Vital Name Observation Time Observation Value Comments S lawrence Systolic blood pressure 2019-01-23 14:51:00 141 mm[Hg] [facility] Diastolic blood pressure 2019-01-23 14:51:00 53 mm[Hg] [facility] Heart rate 2019-01-23 14:51:00 53 /min [facility] Body temperature 2019-01-23 14:51:00 36.67 Nithya [facility] Respiratory rate 2019-01-23 14:51:00 18 /min [facility] Body height 2019-01-23 14:51:[address] [facility] Body weight 2019-01-23 14:51:[address] [facility] BMI 2019-01-23 14:51:00 35.29 kg/m2 [facility] Procedures Procedure Date / Time Performed Performing Clinician Source AUTHORIZATION FOR RELEASE OF PHI 2022-08-31 06:01:00 Doctor Unassigned, Tamms [facility] US RETROPERITONEAL COMPLETE 2022-01-08 15:12:00 Meghan Goldman [facility] CBC WITH DIFF 2022-01-04 16:09:00 Meghan Goldman [facility] FREE T4 2019-01-23 15:01:00 Eduardo Lynn [facility] TRIIODOTHYRONINE 2019-01-23 15:01:00 Eduardo Lynn [facility] THYROID STIMULATING HORMONE 2019-01-23 15:01:00 Eduardo Lynn [facility] Encounters Start Date/Time End Date/Time Encounter Type Admission Type Attending Clinicians Care Facility Care Department Encounter ID Source 2024-04-10 08:30:00 2024-04-10 09:30:00 Annual D2Me Anoop Small .16.840. [id number]. [id number] 2.16.840.1. [id number] [facility] 2023-12-29 17:30:00 2023-12-29 18:00:00 Care Rhina Colvin 2.16.840. [id number]. [id number] 2.16.840.1. [id number] [facility] 2023-04-28 00:00:00 2023-04-28 00:00:00 Outpatient FOG_Samanta Gonzalez AOSM AO [id number] [facility] 2023-04-28 00:00:00 2023-04-28 00:00:00 Outpatient FOG_Samanta Gonzalez AOSM AOSM [id number] [facility] 2023-04-06 00:00:00 2023-04-06 00:00:00 Outpatient FOG_Samanta Gonzalez AOSM AOSM [id number] [facility] 2023-04-06 00:00:00 2023-04-06 00:00:00 Outpatient FOG_Samanta Gonzalez AOSM AOSM [id number] [facility] 2023-04-06 00:00:00 2023-04-06 00:00:00 Outpatient FOG_Samanta Gonzalez AOSM AOSM [id number] [facility] 2023-04-01 00:00:00 2023-04-01 00:00:00 Outpatient FOG_Samanta Gonzalez AOSM AOSM [id number] [facility] 2023-02-09 13:55:00 2023-02-09 14:15:00 Care [facility] Ariella Rivas 2.16.840. [id number]. [id number] 2.16.840.1. [id number] [id number] [facility] 2022-10-04 20:00:00 2022-10-04 21:00:00 CAV Ariella Rivas 2.16.840. [id number]. [id number] 2.16.840.1. [id number] [facility] 2022-09-28 00:00:00 2022-09-28 00:00:00 Outpatient Weaver_r DMG DM [id number] [facility] 2022-09-28 00:00:00 2022-09-28 00:00:00 Outpatient Weaver[facility]r DMG [facility] [id number] [facility] 2022-09-28 00:00:00 2022-09-28 00:00:00 Outpatient Weaver_r DMG [facility] [id number] [facility] 2022-08-31 00:00:00 2022-08-31 00:00:00 Orders Only Doctor Unassigned, Tamms [facility] 1.2.840.114 350.1.13.10 4.2.7.2.686 [id number] [facility] 2022-07-13 14:30:00 2022-07-13 15:00:00 Care Rhina Mancini 2.16.840. [id number]. [id number] 2.16.840.1. [id number]. [id number] E59 [facility] 2022-03-05 00:00:00 2022-03-05 00:00:00 Outpatient [facility] [id number] [facility] 2022-03-03 15:00:00 2022-03-03 15:30:00 Care Rhina Pearson 2.16.840. [id number]. [id number] 2.16.840.1. [id number] [facility] 2022-03-02 19:00:00 2022-03-02 20:00:00 CAV Cherry Bautista 2.16.840. [id number]. [id number] 2.16.840.1. [id number]. [id number] [facility] 2022-01-11 12:00:00 2022-01-11 12:00:00 Outpatient DMG DM [id number] [facility] 2022-01-08 09:24:48 2022-01-08 23:59:00 Outpatient R JONES MEGHAN [facility] [id number] [facility] 2022-01-08 09:24:48 2022-01-08 23:59:00 Hospital Encounter Jones Meghan [facility] 1.840.114 350.1.13.10 4.2.7.2.686 [id number] [facility] 2022-01-04 11:15:00 2022-01-04 11:30:00 Home Health Aide Visit Ariana, Adc Lab Main [facility] 1..840.114 350.1.13.10 4.2.7.2.686 [id number] [facility] 2022-01-04 11:15:00 2022-01-04 11:15:00 Outpatient Bala JURADO [facility] [id number] [facility] 2022-01-04 00:00:00 2022-01-04 00:00:00 Orders Only Doctor Unassigned, Tamms [facility] 1.840.114 350.1.13.10 4.2.7.2.686 [id number] [facility] 2021-09-09 14:15:00 2021-09-09 14:30:00 Home Health Aide Visit Ariana, Adc Lab Main [facility] 1..840.114 350.1.13.10 4.2.7.2.686 [id number] [facility] 2021-09-09 14:15:00 2021-09-09 14:15:00 Outpatient Bala ASHLEYTARYN URRUTIA [facility] [id number] [facility] 2021-09-09 00:00:00 2021-09-09 00:00:00 Orders Only Doctor Unassigned, Tamms [facility] 1.2.840.114 350.1.13.10 4.2.7.2.686 [id number] [facility] 2021-09-02 00:00:00 2021-09-02 00:00:00 Orders Only Doctor Unassigned, Tamms [facility] 1.2.840.114 350.1.13.10 4.2.7.2.686 [id number] [facility] 2021-07-27 00:00:00 2021-07-27 00:00:00 Transition of Care Fartun Orellana [facility] 1.2840.114 350.1.13.10 4.2.7.2.686 [id number] [facility] 2021-07-23 12:00:00 2021-07-25 12:05:00 Inpatient X LEATHA [facility] [id number] [facility] 2021-07-23 12:00:00 2021-07-25 12:05:00 Hospital Encounter Ann Meier Yaman Lakhani, Adnan [facility] 1.2840.114 350.1.13.10 4.2.7.2.686 [id number] [facility] 2019-01-23 13:00:00 2019-01-23 16:39:00 [facility] 1.2.840.114 350.1.13.10 4.2.7.2.686 [id number] [facility] Results Test Description Test Time Test Comments Results Result Co mments Source [facility]:00* Test Item Value Reference Range Interpretation Comme nts T3 (test code = 3402610215) 103.0 ng/dL 97.0-170.0 Lab Interpretation (test cod e = 87205-9) [facility] 17:13:00* Test Item Value Reference Range Interpretation Comme nts T3 (test code = 4982458190) 103.0 ng/dL 97.0-170.0 Lab Interpretation (test cod e = 97445-1) [facility] [id number] 16:08:00 * Test Item Value Reference Range Interpretation Comme nts TSH (test code = 9830045167) 2.57 See_Comment [Automated messa ge] The system which generated this result transmitted reference range: 0.45 - 4.70 mIU/L. The reference range was not used to interpret this result as normal/abnormal. Lab Interpretation (test code = 12582-5) [facility] [id number] 16:08:00 * Test Item Value Reference Range Interpretation Comme nts TSH (test code = 5575815569) 2.57 See_Comment [Automated messa ge] The system which generated this result transmitted reference range: 0.45 - 4.70 mIU/L. The reference range was not used to interpret this result as normal/abnormal. Lab Interpretation (test code = 47067-8) [facility] [id number] 15:54:00* Test Item Value Reference Range Interpretation Comme nts FREE T4 (test code = 1530476081) 1.21 See_Comment [Automated messa ge] The system which generated this result transmitted reference range: 0.78 - 2.20 ng/dL:. The reference range was not used to interpret this result as normal/abnormal. Lab Interpretation (test code = 71516-2) [facility] [id number] 15:54:00* Test Item Value Reference Range Interpretation Comme nts FREE T4 (test code = 6101291729) 1.21 See_Comment [Automated messa ge] The system which generated this result transmitted reference range: 0.78 - 2.20 ng/dL:. The reference range was not used to interpret this result as normal/abnormal. Lab Interpretation (test code = 72803-4) Normal [facility] Notes Date/Time Note Provider Source 2024-04-10 08:30:00 ASSESSMENT SUMMARY KIP RINCON is a 68 year old man seen today by [facility] for a [facility]. Urgent Concerns- No acute concerns Patient Discussion ItemsThe patient does not recall and our records do not show evidence of the preventative services listed below. If your records do not show evidence of these services, please provide them to this patient. - [facility] (Albumin/Creatinine Ratio) urine Additional Comments- Advised to follow up with [facility] as needed. Visit PurposeThese visits are scheduled to augment PCPs to close care and documentation gaps, reconcile medications, help patients make full use of their [facility] benefits and educate patients about their conditions. This visit DOES NOT replace the your Annual Medicare Visit with the patient. The member was encouraged to schedule an AWV with their PCP to review our visit summary & recommendations. See below for teaching and instruction given regarding specific diagnoses. Member verbalized understanding to all. Members Preferred Language Belarusian Patient Currently Located in their home state of [place], YES DIAGNOSIS ZUJPIMWX52.9 - Heart failure, rwexcztowoyT86.0 - Hypertensive heart and chronic kidney disease with heart failure and stage 1 through stage 4 chronic kidney disease, or unspecified chronic kidney dissxamN05.5 - Major depressive disorder, single episode, in full qbrbmenwgB38.69 - Type 2 diabetes mellitus with other specified sbowvtrpokuwF98.59 - Type 2 diabetes mellitus with other circulatory wojhwmhhvxuqgX82.22 - Type 2 diabetes mellitus with diabetic chronic kidney cfpxrztX41.91 - Unspecified atrial lyzgtjtirsauV53.01 - Morbid (severe) obesity due to excess vqjlmxebN52.1 - Secondary srpoysdeiuvzsfxcjcW89.69 - Other xejuyenjiwjehJ31.31 - Chronic kidney disease, stage 3aZ68.35 - Body mass index [BMI] 35.0-35.9, hrfgpF30.01 - detention (current) use of uxcplllypabcsiL81.5 - Hyperlipidemia, vizfmrcnmvyU86.9 - Hypothyroidism, unspecified PATIENT INTAKE Has the patient had an Annual Wellness Visit this calendar year?: AWV already completed Has the patient received an influenza vaccine this flu season? No DISCUSSED: Educated the patient on the risks and benefits of the influenza vaccine Intake Notes: - P opts out off all vaccines, states he doesn't want to take anything the government makes. MEDICATION RECONCILIATION Did you review the patient's prescription and non-prescription drugs, vitamins, herbal remedies, and other supplements, AND is the accompanying medication list documented in the medical record?: Yes GENERAL ASSESSMENT Feet: 5 Inches: 9 Pounds: 240 Patient BMI: 35.44 Notes for E66.01: - Status: BMI is above 35 & is considered morbidly obese. People with morbid obesity are at increased risk for many diseases and health conditions, including cardiovascular disease, high blood pressure (Hypertension), Type 2 diabetes, breathing problems and more. - Pt has co-morbid conditions of: CAD, HTN, HLD, DM - Education: Consider making lifestyle changes through healthy eating and fitness to improve your overall health and quality of life. - Encouraged to use the [employer] [place] benefits.DISCUSSED: Dietary counseling was providedACTION: Advised the patient to discuss with their PCP a possible referral to a weight management program Morbid obesity confirmed on physical exam: Yes Dx: Z68.35 - Body mass index [BMI] 35.0-35.9, adult Notes for Z68.35: - Counseled on the need to avoid processed sugary foods, limit carbohydrates, increase fruit/vegetable intake, portion control - Recommend routine exercise, at least 30 minutes 3-5 days/week as toleratedDISCUSSED: Dietary counseling was providedACTION: Advised the patient to discuss with their PCP a possible referral to a weight management program Supplemental oxygen status: Room Air Supplemental Oxygen Needs: Does not need supplemental oxygen Do you exercise regularly?: No ACTION: Counseled patient on health benefits of regular physical activity General Assessment Notes: - Pt didn't want to take his BP, said it's fine, normally ranges between 125-133 SCREENING - Depression Previously diagnosed with major depressive disorder?: Yes Is the patient currently on antidepressant medication?: No Little interest or pleasure in doing things?: Not at all (0) Feeling down, depressed, or hopeless?: Not at all (0) Trouble falling or staying asleep, or sleeping too much?: Not at all (0) Feeling tired or having little energy?: Not at all (0) Poor appetite or overeating?: Not at all (0) Feeling bad about yourself, or that you are a failure or have let yourself or your family down?: Not at all (0) Trouble concentrating on things, such as reading the newspaper or watching television?: Not at all (0) Moving or speaking so slowly that other people could have noticed? Or so fidgety or restless that you have been moving a lot more than usual?: Not at all (0) Thoughts that you would be better off , or thoughts of hurting yourself in some way?: Not at all (0) Previously recorded diagnosis of bipolar disorder, schizoaffective disorder, or schizophrenia?: No / Unknown Dx: F32.5 - Major depressive disorder, single episode, in full remission Notes for F32.5: - Status: Has Major depressive disorder, single episode, in full remission - PHQ 9 score today: 0 - Pt without suicidal ideation or thoughts of harm to self or others. - Current tx: Family; never took medications - Education: Encouraged to eat a balanced diet to help alleviate depression, find enjoyable activities or new hobbies, ensure including regular exercise, good sleep hygiene - Advised to seek medical attention for worsening of depression or anxious symptoms, thought of wanting to harm self or others & to seek immediate medical attention if thoughts or suicide. 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 from MDD including education on signs and symptoms of depressive episodes and remission maintenance strategiesACTION: PHQ-2/9 should be performed at follow up visits if applicable SCREENING - Fall Risk Have you fallen in the past year?: No Do you feel unsteady when standing or walking?: No SCREENING - DME & Home Health Does the patient use any durable medical equpiment?: No Does the patient use home health, physical therapy or penitentiary services?: No New orders, referrals, or any other assistance with DME or home health needed at this time?: No GENERAL REVIEW OF SYSTEMS Recurrent Infections: No Changes in Vision: No Changes in Hearing: No Chest Pain or Pressure: No Shortness of Breath at Rest or with Exertion: No Lower Extremity Edema: No Cough: No Changes in Stools: Yes Urinary Incontinence: No Easy Bruising: Yes Hematology Symptoms Notes: - Takes AC Balance Problems: No Joint Pain / Swelling: No Review of systems negative unless otherwise indicated above Review of systems negative unless otherwise indicated above: Yes PHYSICAL EXAM alert, well-nourished, well-developed, NAD: Yes Constitutional Physical Exam Notes: - Morbidly obese Psychiatric Physical Exam Notes: - Flat affect, aloof, didn't want to answer questions oriented x 3, recent memory normal, remote memory normal, normal gait: Yes normocephalic, atraumatic, EOMI, sclera anicteric, hearing normal, MMM, normal dentition, no oropharyngeal erythema or exudates: Yes Pedal edema: No Cough: No no rash, no lesions, no ulcers, no jaundice: Yes CARDIOVASCULAR - Congestive Heart Failure Previously diagnosed with heart failure?: Yes Has the patient experienced any Heart Failure acute events in the last 12 months? (CHF Acute Event ED, observation, or inpatient stay): No Lower extremity edema on physical exam today?: No Taking spironolactone, eplerenone, or a diuretic? (exclude hydrochlorothiazide): Yes [NYHA Class III/IV HF] Does the patient develop SOB, fatigue, or palpitations when walking from one end of their house to the other?: No Signs or symptoms of an ACUTE EXACERBATION of chronic CHF?: No Dx: I50.9 - Heart failure, unspecified Notes for I50.9: - Status: Currently asymptomatic - Has comorbid conditions of: HTN, Afib, CAD - Currently prescribed: Carvedilol, Spironolactone - Counseled on the importance of daily weights and notification of provider for a > 2lb weight gain - Education given about KELLY diet and fluid restrictions - Follows with CardiologyDISCUSSED: Discuss the role of goal directed medical therapyDISCUSSED: Discuss taking 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 A diuretic is co-managing the volume overload related to both the hyperaldosteronism and the heart failure. Heart failure causes hyperaldosteronism, and the volume overload caused by hyperaldosteronism contributes to the worsening of heart failure symptoms. Continue diuretic for co-management of both heart failure and hyperaldosteronism.: Yes CARDIOVASCULAR - Arrhythmia Current evidence of one of the following arrhythmias?: Atrial Fibrillation Does patient get palpitations?: No Dx: I48.91 - Unspecified atrial fibrillation Notes for I48.91: - Status: Currently asymptomatic - Heart rate appears controlled on: Carvedilol - Current tx: Xarelto - Monitor for: Unexplained bleeding/bruising- bleeding from gums, nose, blood in urine and/or stool. - Worsening palpitations or bradycardia - Educated: Advised on medication compliance, falls prevention discussed. Avoid throw rugs. Keep hallways well-lit. - Change positions slowly. - Follow up with [facility] [employer] as scheduled for continued assessment and management.DISCUSSED: The importance of anticoagulation for thrombus/embolism prevention in atrial fibrillation.ACTION: Confirm that the patient is prescribed an agent for rate or rhythm control. 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: No ANTICOAGULATION Does patient CURRENTLY take anticoagulant medication?: Yes The patient has the following medical condition: Atrial fibrillation: Yes Dx: 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 - Educated on fall precautions advised - Follow up with [facility] as scheduled for continued assessment and management.DISCUSSED: That patient is compliant with the anticoagulant medicationDISCUSSED: Side effects including increased risk of bleeding RENAL - Chronic Kidney Disease Does patient carry a diagnosis of chronic kidney disease?: Yes Prescribed a phosphate binder (e.g. Sevelamer), a vitamin D analog (e.g. Calcitriol), or a calcimimetic agent (e.g. Sensipar)?: No Dx: N18.31 - Chronic kidney disease, stage 3a Notes for N104.21: - Status: Due to HTN and DM - eGFR: 57 (12/10/23) - eGFR: 59 (08/09/23) - uACR due; [employer] uACR kit ordered - Currently without decreased urine output, loss of appetite, or any edema - Current tx: HTN: Carvedilol, DM: Dietary/lifestyle modifications - ACEI contraindicated 2nd to drug allergies - Was previously taking Entresto, no longer taking due to cost - Education provided: Continue practicing lifestyle modifications to control HTN and DMII: weight loss; exercise routinely as tolerated - Advised to limit salt (sodium). - Do not take any vitamins, flxv-bhc-bkhrduw medicines, or herbal products without talking to your doctor first. - Notify PCP if BP consistently >140/90. - Avoid NSAIDs: ibuprofen (Advil, Motrin), naproxen (Aleve), or similar medicines. - Maintain hydration - Follow up with PCP as scheduled with routine monitoring of renal function.ACTION: Confirm that the patient is on an BUDDY inhibitor or ARB ENDOCRINE - Diabetes (A1c + Eye + Kidney) Select the patient's preferred (and available) testing method: In Home Test Kit Diabetes Diagnosis: Type 2 Most recent Hg A1c value: 6.1 Date of Hg a1c value: 2023-12-10 Use insulin for management of Type 2 DM?: No Statin status: Already on a statin regimen Have a glucose monitor?: Yes The patient has the following medical complication secondary to diabetes: Hyperlipidemia: Yes The patient has the following medical complication secondary to diabetes: Other Circulatory Complications (e.g. CAD or Erectile Dysfunction): Yes The patient has the following medical complication secondary to diabetes: Chronic Kidney Disease with GFR < 90: Yes Taking an an BUDDY inhibitor or ARB?: No Dx: E11 - Type 2 diabetes mellitus with other specified complication Notes for : - Status: DM complicated by: morbid obesity, HLD, CAD, CKD - HgA1C: 6.1 (12/10/23)on current medical mgmt - Home Blood Glucose Monitoring: Has a glucometer, but doesn't check his BG. States he won't check it - BUDDY-I/ARB: ACEI contraindicated 2nd to drug allergy - Statin: Atorvastatin - Last Retinal Eye Exam: Diabetic retinal eye exam completed by an [employer] (11/29/23); results: Normal - Current treatment: Farxiga - Education: Encouraged to continue dietary compliance-low carbohydrate diet, avoid processed sugary foods, regular exercise as tolerated-weight loss - Will monitor for: New/worsening s/sx - Follow up with PCP as scheduled for routine lab work & continued assessment and management. Dx: E78.5 - Hyperlipidemia, unspecified Notes for E78.5: - Status: (08/09/23): Total cholesterol =125; HDL =33, LDL =55, Trig =329 - Current treatment: Atorvastatin - Education: Reduce saturated fats intake on a daily basis. - Avoid fried/greasy/processed meats intake. - Increase fruit & vegetable intake. - About 20-30 minutes of daily exercise if tolerated. - Will monitor for: Worsening lipid control - Follow up with PCP as scheduled for routine lab work & continued assessment and management. Dx: E11.59 - Type 2 diabetes mellitus with other circulatory complications Notes for E11.59: - Status: CAD noted following diagnosis of DM - DM treated with: Farxiga - CAD being treated with: Carvedilol, ASA, Atorvastatin, s/p stents (2018) - Tight glycemic control recommended - Follows with Cardiology / PCP Dx: E11.22 - Type 2 diabetes mellitus with diabetic chronic kidney disease Notes for E11.22: - Status Has Type 2 diabetes mellitus with diabetic chronic kidney disease - eGFR: 57 (12/10/23) - eGFR: 59 (08/09/23) - uACR due; [employer] uACR kit ordered - Currently without decreased urine output, loss of appetite, or any edema - Current tx: HTN: Carvedilol, DM: Dietary/lifestyle modifications - ACEI contraindicated 2nd to drug allergies - Was previously taking Entresto, no longer taking due to cost - Education provided: Continue practicing lifestyle modifications to control HTN and DMII: weight loss; exercise routinely as tolerated - Advised to limit salt (sodium). - Do not take any vitamins, jlnk-wrx-mfyyvmk medicines, or herbal products without talking to your doctor first. - Notify PCP if BP consistently >140/90. - Avoid NSAIDs: ibuprofen (Advil, Motrin), naproxen (Aleve), or similar medicines. - Maintain hydration - Follow up with PCP as scheduled with routine monitoring of renal function. DISCUSSED: Educated patient on etiology and natural history of diabetes and importance of self management DISCUSSED: Counseled patient on moderate exercise and increasing vegetable intake ACTION: Confirm annual podiatry exam ACTION: Confirm retinopathy screen every 2 years HEMATOLOGY - Thrombocytopenia/Senile Purpura Purpura on physical exam?: No Is the patient's most recent platelet value within the past 12 months less than 150k?: No IMMUNODEFICIENCY Does patient CURRENTLY take a drug that suppresses the immune system?: No MORBID OBESITY Patient BMI: 35.44 The patient has a BMI of 35.44 as well as hypertension: Yes The patient has a BMI of 35.44 as well as hyperlipidemia: Yes The patient has a BMI of 35.44 as well as CHF: Yes The patient has a BMI of 35.44 as well as coronary artery disease: Yes The patient has a BMI of 35.44 as well as diabetes: Yes Dx: E66.01 - Morbid (severe) obesity due to excess calories Notes for E66.01: - Status: BMI is above 35 & is considered morbidly obese. People with morbid obesity are at increased risk for many diseases and health conditions, including cardiovascular disease, high blood pressure (Hypertension), Type 2 diabetes, breathing problems and more. - Pt has co-morbid conditions of: CAD, HTN, HLD, DM - Education: Consider making lifestyle changes through healthy eating and fitness to improve your overall health and quality of life. - Encouraged to use the [employer] benefits.DISCUSSED: Dietary counseling was providedACTION: Advised the patient to discuss with their PCP a possible referral to a weight management program Morbid obesity confirmed on physical exam: Yes Dx: Z68.35 - Body mass index [BMI] 35.0-35.9, adult Notes for Z68.35: - Counseled on the need to avoid processed sugary foods, limit carbohydrates, increase fruit/vegetable intake, portion control - Recommend routine exercise, at least 30 minutes 3-5 days/week as toleratedDISCUSSED: Dietary counseling was providedACTION: Advised the patient to discuss with their PCP a possible referral to a weight management program COMMON DIAGNOSES The patient has a diagnosis of hyperlipidemia: Yes The patient has a diagnosis of hypertension: Yes The patient has a previously recorded diagnosis of hypothyroidism: Yes Statin status: Already on a statin regimen Dx: E78.5 - Hyperlipidemia, unspecified Notes for E78.5: - Status: (08/09/23): Total cholesterol =125; HDL =33, LDL =55, Trig =329 - Current treatment: Atorvastatin - Education: Reduce saturated fats intake on a daily basis. - Avoid fried/greasy/processed meats intake. - Increase fruit & vegetable intake. - About 20-30 minutes of daily exercise if tolerated. 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 - Current Treatment: Carvedilol, Spironolactone - Monitor for: New/worsening s/sx - Education: Reinforced lifestyle modifications to control BP including a heart healthy, low salt, diet and regular exercise, at least 30 minutes of moderate - exercise daily 3-5 days a week as tolerated, and weight loss. - Reviewed signs and symptoms of hypotension - Reviewed signs and symptoms of stroke (FAST) and importance of calling 911 and seeking medical care immediately if experiencing. - Advised to record BP log and to take to next PCP visit along with BP monitor for comparison - Advised to notify PCP if BP consistently elevated, SBP >140 and DBP >90 - Follow up with PCP as scheduled for continued assessment and management.DISCUSSED: Educated patient on etiology and natural history of hypertensionDISCUSSED: Educated patient on lifestyle modifications such as diet and exercise to improve blood pressureDISCUSSED: Educated patient on importance of medication adherence for blood pressure control The etiology of the patient's hypothyroidism is: Other Dx: E03.9 - Hypothyroidism, unspecified Notes for E03.9: - Status: Most recent TSH: 2.20 (08/09/23) - Current tx: Levothyroxine - Monitor for: New/worsening s/sx - Education provided: Advised take medication on an empty stomach, do not eat or drink for one hour. - Follow up with: PCP for routine lab work & continued assessment and management. ASSESSMENT SUMMARY Member medical history, medications, and most recent labs reviewed in [facility]. Discussed medication use and side effects with members prior to prescribing. Drug interactions reviewed: Yes APPOINTMENT CPT CODE* Please indicate how this visit was conducted: Video Please select the video platform used during the visit: [facility] Video Room Please record the total amount of time you spent on this patient visit- Total time includes time spent on preparation, speaking with the patient, documentation, and post-visit coordination of care - This is limited to time spent ON THE DATE OF SERVICE (e.g. does not include time spent on days prior to or after the date of service) 40 - 59 minutes Anoop Small [facility], [facility]
[2024-07-16] MEDS ORDERED: KETOROLAC 30 MG/ML INJ ONE (17:59)
[2024-07-16] MEDS ORDERED: FAMOTIDINE 20 MG/2 ML VIAL IV ONE (17:59)
[2024-07-16] MEDS ORDERED: ONDANSETRON 4 MG/2 ML VIAL ONE (17:59)
[2024-07-16 18:09] LABS: Absolute Basophils 0.1 K/uL (0-0.5); Absolute Eosinophils 0.2 K/uL (0-0.5); Absolute Lymphocytes (CBC) 1.6 K/uL (0.7-4.9); Eosinophils % 2.1 % (0-4.4); Hematocrit 43.4 % (39.6-49.0); Hemoglobin 14.4 g/dL (13.6-17.9); Lymphocytes % 17.6 % (15.3-44.8); MCH 27.2 pg (27.0-35.0); MCHC 33.3 g/dL (32.0-36.0); MCV 81.7 fL (80-100); MPV 8.8 fL (7.6-11.3); Monocytes % 11.4 % (3.3-12.3); Neutrophils % 67.9 % (41.7-73.7); Nucleated Red Blood Cells % 0.1 % (0-0); Platelets 219 thou/uL (152-406); RBC Red Blood Cell Count 5.31 M/uL (4.33-5.43); Red Cell Distribution Width 14.5 % (12.1-15.2)
[2024-07-16 18:19] LABS: Specific Gravity 1.016 (1.005-1.030); Urine Bilirubin NEGATIVE (Negative); Urine Blood Negative (Negative); Urine Clarity Clear (Clear); Urine Color Light-Yellow (Yellow); Urine Glucose 4+ (Over) (Negative); Urine Ketones NEGATIVE (Negative); Urine Microscopic Reflex YN NO UMIC; Urine Nitrite NEGATIVE (Negative); Urine Protein NEGATIVE (Negative); Urine Urobilinogen Normal (Normal); Urine pH 5.5 (5.0-7.0)
[2024-07-16 18:25] LABS: ALT/SGPT 19 U/L (16-61); AST/SGOT < 10 U/L (15-37); Albumin/Globulin Ratio 1.2 (1.1-1.8); Alkaline Phosphatase 76 U/L (45-117); Anion Gap 9.1 mEq/L (5.0-15.0); BUN Blood Urea Nitrogen 26 mg/dL (7-18); Bicarbonate 25 mEq/L (21-32); Bilirubin Total 0.4 mg/dL (0.2-1.0); Globulin 3.4 g/dL (2.3-3.5); Glomerular Filtration Rate 52 ml/min (=/>90); Glucose Level 127 mg/dL (74-106); Lipase 38 U/L (13-75); Potassium 4.1 mEq/L (3.5-5.1); Protein, Total 7.4 g/dL (6.4-8.2); Sodium Level 136 mEq/L (136-145)
--- NOTE | 2024-07-16 19:46 | RAD REPORT ---
EXAMINATION: CT Abdomen Pelvis W Contrast CLINICAL INDICATION: Male, 68 years old. ABD PAIN TECHNIQUE: CT abdomen and pelvis was performed, after the administration of IV contrast, as per [facility]. Axial, sagittal and coronal reconstructions were obtained. One or more of the following dose reduction techniques were used: Automated exposure control, adjustment of the mA and k V according to patient size, and iterative reconstruction. Unless otherwise specified, incidental findings do not require dedicated imaging follow-up. COMPARISON: 01/30/2024 FINDINGS: LOWER CHEST: The visualized lung bases are clear. LIVER: Normal in size and contour. Subcentimeter right lobe anterior subcapsular hypoattenuating lesi on is stable, suggestive of a small cyst. No other suspicious focal lesion. BILIARY SYSTEM: No suspicious abnormalities. SPLEEN: Normal size. No focal lesion. PANCREAS: No mass, ductal dilation, or isiah-pancreatic fluid. 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 KIDNEYS: Normal size and contour. No hydronephrosis. URINARY BLADDER: Decompressed limiting evaluation. GASTROINTESTINAL TRACT: No evidence of free air, significant intra-abdominal free fluid, bowel obstru ction or abscess. Mild distal colonic diverticulosis. APPENDIX: Normal appendix. LYMPH NODES: No lymphadenopathy. MUSCULOSKELETAL: No acute or suspicious osseous abnormality. ADDITIONAL FINDINGS: None. IMPRESSION: No acute or concerning abnormalities seen in the abdomen or pelvis. Stable incidental findings as above.
--- NOTE | 2024-07-16 19:48 | ER ---
Nurse's Notes [facility] Name: Darryl Madrigal Age: 68 yrs Sex: Male : 1955 Arrival Date: 07/16/2024 Time: 16:34 Bed 14 Private MD: Diagnosis: Upper abdominal pain, unspecified;Acute gastritis Presentation: 07/16 16:51 Chief complaint: Patient states: recently here for diverticulitis, got better. Last tm6 night after I ate, my stomach started to get into a knot. It hurt so much I couldn't walk. The pain is in the center of my abdomen, it comes and goes. Since last night, getting dizzy on and off. Coronavirus screen: Client denies travel out of the [place] in the last 14 days. Ebola Screen: Patient negative for fever greater than or equal to 101.5 degrees Fahrenheit, and additional compatible Ebola Virus Disease symptoms Patient denies exposure to infectious person. Patient denies travel to an Ebola-affected area in the 21 days before illness onset. No symptoms or risks identified at this time. Initial Sepsis Screen: Does the patient meet any 2 criteria? No. Patient's initial sepsis screen is negative. Does the patient have a suspected source of infection? No. Patient's initial sepsis screen is negative. Risk Assessment: Do you want to hurt yourself or someone else? Patient reports no desire to harm self or others. Onset of symptoms was July 15, 2024. 16:51 Method Of Arrival: Wheelchair tm6 16:51 Acuity: SHEL[place] 3 tm6 Triage Assessment: 16:51 General: Appears in no apparent distress. uncomfortable, Behavior is calm, cooperative. tm6 Pain: Complains of pain in abdomen Pain currently is 5 out of 10 on a pain scale. at worst was 10 out of 10 on a pain scale. Pain began 1 day ago. Pain: Is intermittent. EENT: No signs and/or symptoms were reported regarding the EENT system. Neuro: Level of Consciousness is awake, alert, obeys commands, Oriented to person, place, time, situation. Cardiovascular: Patient's skin is warm and dry. Respiratory: Airway is patent Respiratory effort is even, unlabored, Respiratory pattern is regular, symmetrical. GI: Abdomen is round non-distended, Reports lower abdominal pain, upper abdominal pain. : No signs and/or symptoms were reported regarding the genitourinary system. Derm: No signs and/or symptoms reported regarding the dermatologic system. Musculoskeletal: No signs and/or symptoms reported regarding the musculoskeletal system. Historical: - Allergies: 16:49 RICHARD INHIBITORS; tm6 - PMHx: 16:49 Diabetes mellitus; Hypertensive disorder; tm6 16:50 Atrial fibrillation; tm6 - PSHx: 16:50 None; tm6 - Immunization history:: Client reports receiving the 2nd dose of the Covid vaccine. - Infectious Disease History:: Denies. - Social history:: Smoking status: Patient denies any tobacco usage or history of. Patient/guardian denies using alcohol. Screenin:10 [facility] ED Fall Risk Assessment (Adult) History of falling in the last 3 months, me1 including since admission No falls in past 3 months (0 pts) Confusion or Disorientation No (0 pts) Intoxicated or Sedated No (0 pts) Impaired Gait No (0 pts) Mobility Assist Device Used No (0 pt) Altered Elimination No (0 pt) Score/Fall Risk Level 0 - 2 = Low Risk Maintained a safe environment, Provided non-skid footwear, Hourly rounding (assess needs \T\ fall precautionary measures) done. Abuse screen: Denies threats or abuse. Nutritional screening: No deficits noted. Tuberculosis screening: No symptoms or risk factors identified. Assessment: 18:10 General: Appears uncomfortable, well groomed, well developed, well nourished, Behavior me1 is calm, cooperative, appropriate for age, Reports mid abdominal pain, cramping that started last night after dinner. pain is episodic and gets so bad patient cant walk. c/o intermittent dizziness and nausea as well. Pain: Complains of pain in abdomen Pain does not radiate. Pain currently is 6 out of 10 on a pain scale. at worst was 10 out of 10 on a pain scale. Quality of pain is described as crampy, Pain began 1 day ago. Is episodic. Neuro: Level of Consciousness is awake, alert, obeys commands, Oriented to person, place, time, situation, Appropriate for age. Neuro: Reports dizziness, intermittently since yesterday. Cardiovascular: Patient's skin is warm and dry. Respiratory: Airway is patent Respiratory effort is even, unlabored, Respiratory pattern is regular, symmetrical. GI: Abdomen is round non-distended, Bowel sounds present X 4 quads. Abd is soft X 4 quads Reports upper abdominal pain, nausea. : No signs and/or symptoms were reported regarding the genitourinary system. EENT: No signs and/or symptoms were reported regarding the EENT system. Derm: Skin is intact, is healthy with good turgor, Skin is pink, warm \T\ dry. Musculoskeletal: No signs and/or symptoms reported regarding the musculoskeletal system. Vital Signs: 16:49 Resp 17; Temp 97.6(O); Weight 112.49 kg; Height 5 ft. 9 in. ; Pain 5/10; tm6 16:51 BP 153 / 48; Pulse 60; Pulse Ox 99% on R/A; MAP 75 mmHg; tm6 18:00 BP 124 / 86; Pulse 56; Resp 15; Pulse Ox 96% ; me1 19:00 BP 114 / 49; Pulse 60; Resp 14; Pulse Ox 95% ; me1 20:15 BP 111 / 42; Pulse 60; Resp 16; Temp 98.4; Pulse Ox 99% ; me1 16:49 Body Mass Index 36.62 (112.49 kg, 175.26 cm) tm6 16:49 Pain Scale: Adult tm6 ED Course: 16:38 Patient arrived in ED. im 16:51 Arm band placed on right wrist. tm6 16:53 Triage completed. tm6 16:55 Maverick Bradford MD is Attending Physician. ec2 17:56 Polly Ayon, JACE is Primary Nurse. me1 18:03 Inserted saline lock: 22 gauge in right antecubital area, using aseptic technique. cc6 Blood collected. Flushed with 10 mL NS. 18:06 CBC with Diff Sent. me1 18:06 CMP Sent. me1 18:06 Lipase Sent. me1 18:10 Patient has correct armband on for positive identification. Bed in low position. Call mt1 light in reach. Side rails up X2. Provided Education on: POC. Verbalized understanding. . Client placed on continuous cardiac and pulse oximetry monitoring. NIBP monitoring applied. Pulse ox on. NIBP on. 18:10 No provider procedures requiring assistance completed. me1 19:15 CT Abd/Pelvis - IV Contrast Only In Process Unspecified. EDMS 20:17 IV discontinued, intact, bleeding controlled, No redness/swelling at site. Pressure me1 dressing applied. Administered Medications: 18:06 Drug: Ondansetron IVP 4 mg IVP once; over 2 minutes Route: IVP; Site: right antecubital;me1 18:22 Follow up: Response: No adverse reaction; Nausea is decreased me1 18:07 Drug: TORadol - Ketorolac IVP 15 mg IVP once Route: IVP; Site: right antecubital; me1 18:22 Follow up: Response: No adverse reaction; Pain is decreased me1 18:07 Drug: Famotidine IVP 20 mg IVP once; dilute with 10 mL 0.9% NaCl; give over 2 minutes me1 Route: IVP; Site: right antecubital; 18:20 Follow up: Response: No adverse reaction me1 Medication: 18:10 VIS not applicable for this client. me1 Outcome: 19:47 Discharge ordered by MD. ec2 20:17 Discharged to home ambulatory, me1 20:17 Condition: stable 20:17 Discharge instructions given to patient, Instructed on discharge instructions, follow up and referral plans. medication usage, Demonstrated understanding of instructions, follow-up care, medications, Prescriptions given X 2, 20:18 Patient left the ED. me1 Signatures: Dispatcher [employer] EDMS Cadence Ragsdale Michelle RN RN me1 Maverick Bradford MD MD ec2 Jim Hadley RN RN tm6 Tila Moss cc6 Corrections: (The following items were deleted from the chart) 18:10 16:51 Chief complaint: Patient states: recently here for diverticulitis, got better. me1 Last night after I ate, my stomach started to get into a knot. It hurt so much I couldn't walk. The pain is in the center of my abdomen, it comes and goes. Since last night, getting dizzy on and off. tm6 18:22 18:22 Response: No adverse reaction; Pain is decreased me1 me1
--- NOTE | 2024-07-16 19:48 | EDPHYS ---
Physician Documentation [facility] Name: Darryl Madrigal Age: 68 yrs Sex: Male : 1955 Arrival Date: 07/16/2024 Time: 16:34 Bed 14 Private MD: ED Physician Maverick Bradford HPI: 07/16 17:00 This 68 yrs old Male presents to ER via Wheelchair with complaints of ec2 Dizziness, Abdominal Pain. 17:00 Patient arrives today for evaluation of upper abdominal pain. Reports that he has been ec2 experiencing upper abdominal pain has been constant since last night. Reports some associated nausea without vomiting. No diarrheal issues. Reports history of diverticulitis and states this feels similar. Patient reports no urinary complaints. Denies any cough and cold symptoms. Reports history of hypertension, diabetes, hyperlipidemia as well as atrial fibrillation.. Historical: - Allergies: 16:49 RICHARD INHIBITORS; tm6 - PMHx: 16:49 Diabetes mellitus; Hypertensive disorder; tm6 16:50 Atrial fibrillation; tm6 - PSHx: 16:50 None; tm6 - Immunization history:: Client reports receiving the 2nd dose of the Covid vaccine. - Infectious Disease History:: Denies. - Social history:: Smoking status: Patient denies any tobacco usage or history of. Patient/guardian denies using alcohol. ROS: 17:00 Constitutional: as per hpi ec2 Exam: 17:00 Constitutional: GEN: NAD Head: atraumatic Eyes: EOMI Ears: External ears are ec2 normal. CV: regular rate LUNGS: no respiratory distress ABD: non-distended, obese, soft, not guarding, not rigid SKIN: no evidence of rashes MSK: no evidence of trauma Vital Signs: 16:49 Resp 17; Temp 97.6(O); Weight 112.49 kg; Height 5 ft. 9 in. ; Pain 5/10; tm6 16:51 BP 153 / 48; Pulse 60; Pulse Ox 99% on R/A; MAP 75 mmHg; tm6 18:00 BP 124 / 86; Pulse 56; Resp 15; Pulse Ox 96% ; me1 19:00 BP 114 / 49; Pulse 60; Resp 14; Pulse Ox 95% ; me1 20:15 BP 111 / 42; Pulse 60; Resp 16; Temp 98.4; Pulse Ox 99% ; me1 16:49 Body Mass Index 36.62 (112.49 kg, 175.26 cm) tm6 16:49 Pain Scale: Adult tm6 MDM: 17:00 Data reviewed: vital signs, nurses notes. ED course: Patient arrives today for ec2 abdominal pain. Examination remarkable for abdominal findings as above. Will obtain lab work, CT imaging and treat the patient lives. Differential diagnosis includes diverticulitis, pancreatitis, gallbladder pathology.. 17:17 Medical Screening Exam initiated ec2 19:04 ED course: Metabolic profile shows renal dysfunction. Urine is noninfectious appearing. ec2 CBC is reassuring. Lipase within normal ranges. Pending CT imaging.. 19:47 ED course: CT imaging with no acute findings. Will treat the patient for gastritis and ec2 have the patient follow-up with gastroenterology. Patient discharged home. Return precautions given.. 07/16 16:59 Order name: CBC with Diff; Complete Time: 19:04 2 07/16 16:59 Order name: CMP; Complete Time: 19:04 2 07/16 16:59 Order name: Lipase; Complete Time: 19:04 ec2 07/16 16:59 Order name: Urinalysis w/ reflexes; Complete Time: 19:04 ec2 07/16 16:59 Order name: CT Abd/Pelvis - IV Contrast Only; Complete Time: 19:47 ec2 07/16 16:59 Order name: IV Saline Lock; Complete Time: 18:06 ec2 07/16 16:59 Order name: Labs collected and sent; Complete Time: 18:06 ec2 Administered Medications: 18:06 Drug: Ondansetron IVP 4 mg IVP once; over 2 minutes Route: IVP; Site: right antecubital;me1 18:22 Follow up: Response: No adverse reaction; Nausea is decreased me1 18:07 Drug: TORadol - Ketorolac IVP 15 mg IVP once Route: IVP; Site: right antecubital; me1 18:22 Follow up: Response: No adverse reaction; Pain is decreased me1 18:07 Drug: Famotidine IVP 20 mg IVP once; dilute with 10 mL 0.9% NaCl; give over 2 minutes me1 Route: IVP; Site: right antecubital; 18:20 Follow up: Response: No adverse reaction me1 Disposition Summary: 07/16/24 19:47 Discharge Ordered Notes: Location: Home ec2 Condition: Stable ec2 Diagnosis - Upper abdominal pain, unspecified ec2 - Acute gastritis ec2 Followup: ec2 - With: Private Physician - When: - Reason: Re-evaluation by your physician Discharge Instructions: - Discharge Summary Sheet ec2 - Gastritis, Adult, [id number] ec2 Forms: - Medication Reconciliation Form ec2 - Antibiotic Education ec2 - Prescription Opioid Use ec2 - Patient Portal Instructions ec2 - Leadership Thank You Letter ec2 Prescriptions: - Zofran 4 mg Oral Tablet - take 1 tablet ORAL route every 12 hours As needed; 20 tablet; Refills: 0, ec2 Product Selection Permitted - Pepcid 20 mg Oral Tablet - take 1 tablet ORAL route once daily; 20 tablet; Refills: 0, Product Selection ec2 Permitted Signatures: Dispatcher [employer] Polly Morin RN RN me1 Maverick Bradford MD MD ec2 Jim Haldey RN RN tm6
[2024-07-17 02:29] VITALS: BP 111/42; TEMP 98.4; O2SAT 99
== END 2024-07-16 20:18 | disposition home or self-care (01) ==
LOC: ER 16:34
DX: K29.00 Acute gastritis without bleeding (principal); R10.9 Unspecified abdominal pain; E11.9 Type 2 diabetes mellitus without complications; I10 Essential (primary) hypertension; I48.11 Longstanding persistent atrial fibrillation; R11.0 Nausea; R42 Dizziness and giddiness
CPT/HCPCS: 85025; 36415; 81003; 83690; 80053; 74177; 96375; 96374; 99284; Q9967; J2405